=== PATIENT | female | born 1960 ===

== ENCOUNTER 2017-12-17 20:28 | Inpatient (IN) | payer MEDICAID ==
[2017-12-17] MEDS ORDERED: Albuterol-Ipratrop 3 mg / 0.5 (3 ml) UD IH STA ×2 (20:57→23:55)
--- NOTE | 2017-12-17 21:04 | ED PDOC ---
HPI: SOB/CHF/COPD Time Seen by Provider: 12/17/17 20:44 Chief Complaint (Nursing): Chest Pain Chief Complaint (Provider): shortness of breath History Per: Patient History/Exam Limitations: no limitations Onset/Duration Of Symptoms: Days (2) Current Symptoms Are (Timing): Still Present Associated Symptoms: Chest Pain, Leg/Calf Pain Additional Complaint(s): 57 y/o female brought in by EMS for evaluation of shortness of breath x 2 days. Associated left-sided chest pain, wheezing; of which little relief provided with albuterol inhaler. Patient also reports right leg pain/redness/swelling x 5 days. Denies fever, nausea/vomiting, abdominal pain, recent travel. Past Medical History Reviewed: Historical Data, Nursing Documentation, Vital Signs Vital Signs: Last Vital Signs Temp 99.9 F H 12/17/17 23:11 Pulse 105 H 12/17/17 20:33 Resp 18 12/17/17 20:33 BP 172/100 H 12/17/17 20:33 Pulse Ox 97 12/18/17 00:29 - Medical History PMH: Asthma, Depression, HTN - Surgical History Other surgeries: right ankle sx, left shoulder sx - Family History Family History: States: No Known Family Hx - Social History Current smoker - smoking cessation education provided: No Ex-Smoker (has not smoked in the last 12 months): Yes - Allergies Allergies/Adverse Reactions: Allergies Allergy/AdvReac Type Severity Reaction Status Date / Time No Known Allergies Allergy Verified 12/17/17 20:33 Review of Systems ROS Statement: Except As Marked, All Systems Reviewed And Found Negative Cardiovascular: Positive for: Chest Pain Respiratory: Positive for: Cough, Shortness of Breath Musculoskeletal: Positive for: Leg Pain Physical Exam - Reviewed Nursing Documentation Reviewed: Yes Vital Signs Reviewed: Yes - Physical Exam Appears: Positive for: Well, Non-toxic, Uncomfortable Head Exam: Positive for: ATRAUMATIC, NORMAL INSPECTION, NORMOCEPHALIC Skin: Positive for: Normal Color Eye Exam: Positive for: Normal appearance ENT: Positive for: Normal ENT Inspection Cardiovascular/Chest: Positive for: Regular Rate, Rhythm Respiratory: Positive for: Wheezing (audible wheezing) Gastrointestinal/Abdominal: Positive for: Normal Exam Back: Positive for: Normal Inspection Extremity: Positive for: Normal ROM, Calf Tenderness (right lower extremity edema, erythema, tenderness; no skin break, lesions noted. warm to touch) Neurologic/Psych: Positive for: Alert, Oriented - Laboratory Results Result Diagrams: 12/17/17 21:33 12/17/17 21:33 - ECG ECG: Positive for: Viewed By Me (reviewed by ED attending) ECG Rhythm: Positive for: Sinus Rhythm O2 Sat by Pulse Oximetry: 97 - Progress ED Course And Treament: labs, venous duplex RLE, CTA chest, duonebs, IV solumedrol, ekg EXAM: US Duplex Right Lower Extremity Veins EXAM DATE/TIME: 12/17/2017 8:57 PM CLINICAL HISTORY: 57 years old, female; Pain and signs and symptoms; Swelling of limb; Lower extremity, right; Leg, lower; Additional info: Pain/swelling right le TECHNIQUE: Real-time duplex ultrasound scan of the right lower extremity veins integrating B-mode twodimensional vascular structure, Doppler spectral analysis, color flow Doppler imaging and compression. COMPARISON: There are no prior studies for comparison. FINDINGS: Deep veins: Common femoral, superficial femoral, popliteal and posterior tibial veins were evaluated. All veins examined are compressible. There are no intraluminal filling defects. There is expected blood flow on Doppler imaging. There is change in waveform with augmentation. Soft tissues: There is a 3.3 x 1.3 x 2.5 cm right popliteal cyst. IMPRESSION: No deep venous thrombosis in the visualized vascular segments of the right lower extremity; popliteal cyst EXAM: CT Angiography Chest With Intravenous Contrast EXAM DATE/TIME: 12/17/2017 8:58 PM CLINICAL HISTORY: 57 years old, female; Pain and signs and symptoms; Shortness of breath; Chest pain; Left-sided chest pain; Additional info: Chest pain, SOB TECHNIQUE: Axial computed tomographic angiography images of the chest with intravenous contrast using pulmonary embolism protocol. All CT scans at this facility use at least one of these dose optimization techniques: automated exposure control; mA and/or kV adjustment per patient size (includes targeted exams where dose is matched to clinical indication); or iterative reconstruction. MIP reconstructed images were created and reviewed. Coronal and sagittal reformatted images were created and reviewed. COMPARISON: CT - VASCULAR^PE_LARGE (ADULT) 2011-04-13 20:52 FINDINGS: Heart, aorta and Pulmonary arteries: Heart size is normal. There is no pericardial effusion. Ascending aorta is mildly prominent, 4 cm in diameter. Main pulmonary artery is dilated, 4 cm in diameter. There are no central pulmonary emboli. Allowing for bolus timing, no peripheral emboli are identified. Lungs and pleural spaces: Trachea and main bronchi are patent. There is no pneumothorax. There are pleural plaques with focal areas of calcification in the right upper hemithorax. There is no focal consolidation. There is a calcified granuloma in the right middle lobe. There is a 3.5 mm noncalcified left lower lobe nodule. There is a 4.6 mm peripheral left lower lobe nodule. There is an adjacent 4 mm nodule. There is a 5.7 mm pleural-based left lower lobe nodule. There is subsegmental atelectasis/scarring in the left lower lobe. There are no effusions. Thyroid: Thyroid is only partially imaged. Bones/joints: There is streak artifact from clips in the left humeral head. There are old healed rib fractures bilaterally. There degenerative changes in the spine. Soft tissues: unremarkable Mediastinum: Esophagus is unremarkable. There is a small hiatal hernia. There are shotty mediastinal nodes. Small calcified right hilar nodes. Upper abdomen: There are no acute abnormalities in the visualized portion of the abdomen. There are multiple calcified granulomas in the liver and spleen. IMPRESSION: Prior granulomatous disease; multiple small noncalcified left lower lobe nodules difficult to further characterize; prominent ascending aorta, 4 cm in diameter, no dissection; dilated main pulmonary artery suggest pulmonary hypertension, no pulmonary emboli; subsegmental atelectasis/scarring at the left base On re-eval, patient still with diffuse wheezing; notes little improvement of breathing. Duoneb and Mag sulfate ordered. IV zosyn ordered Case discussed with Dr. Son, Medical Service on-call, for admission Disposition - Clinical Impression Clinical Impression: Asthma exacerbation, Cellulitis of right leg - Patient ED Disposition Is Patient to be Admitted: No - Disposition Disposition Time: 00:29 Condition: FAIR - POA Present On Arrival: None
[2017-12-17] MEDS ORDERED: Albuterol-Ipratrop 3 mg / 0.5 (3 ml) UD ONE (21:08)
[2017-12-17] MEDS ORDERED: Sodium Chloride 0.9% 50 ML IV ONE (21:30)
[2017-12-17] MEDS ORDERED: Iodixanol 320 MG/ML 100 ML BOTTLE IV ONE (21:30)
[2017-12-17 21:39] LABS: BASO % 0.8 % (0.0-2.0); EOS % 0.5 % (0.0-4.0); HEMOGLOBIN 16.4 g/dL (12.0-16.0); LYMPH # 1.1 K/uL (1.0-4.3); LYMPH % 19.3 % (20.0-40.0); MEAN CELL VOLUME 96.1 fl (81.0-99.0); MEAN CORPUSCULAR HEMOGLOBIN 32.1 pg (27.0-31.0); MEAN CORPUSCULAR HGB CONC 33.4 g/dL (33.0-37.0); MEAN PLATELET VOLUME 9.3 fl (7.2-11.7); MONO # 0.5 K/uL (0.0-0.8); MONO % 9.2 % (0.0-10.0); NEUT % 70.2 % (50.0-75.0); NRBC % 0.1 % (0.0-0.0); RBC 5.11 Mil/uL (3.80-5.20); RED CELL DISTRIBUTION WIDTH 13.7 % (11.5-14.5); WHITE BLOOD COUNT 5.8 K/uL (4.8-10.8)
[2017-12-17 21:48] LABS: ALB/GLOB RATIO 0.9 (1.0-2.1); ALBUMIN 4.3 g/dL (3.5-5.0); ALT/SGPT 60 U/L (9-52); AST/SGOT 70 U/L (14-36); BLOOD UREA NITROGEN 5 mg/dl (7-17); CALCIUM 9.4 mg/dL (8.4-10.2); GFR AFRICAN-AMERICAN > 60; GFR NON-AFRICAN AMERICAN > 60
[2017-12-17 21:49] LABS: PARTIAL THROMBOPLASTIN TIME 33.8 Seconds (25.6-37.1); PROTHROMBIN TIME 11.4 Seconds (9.8-13.1)
--- NOTE | 2017-12-17 22:58 | US ---
EXAM: US Duplex Right Lower Extremity Veins EXAM DATE/TIME: 12/17/2017 8:57 PM CLINICAL HISTORY: 57 years old, female; Pain and signs and symptoms; Swelling of limb; Lower extremity, right; Leg, lower; Additional info: Pain/swelling right le TECHNIQUE: Real-time duplex ultrasound scan of the right lower extremity veins integrating B-mode two-dimensional vascular structure, Doppler spectral analysis, color flow Doppler imaging and compression. COMPARISON: There are no prior studies for comparison. FINDINGS: Deep veins: Common femoral, superficial femoral, popliteal and posterior tibial veins were evaluated. All veins examined are compressible. There are no intraluminal filling defects. There is expected blood flow on Doppler imaging. There is change in waveform with augmentation. Soft tissues: There is a 3.3 x 1.3 x 2.5 cm right popliteal cyst. IMPRESSION: No deep venous thrombosis in the visualized vascular segments of the right lower extremity; popliteal cyst
--- NOTE | 2017-12-17 23:20 | CT ---
EXAM: CT Angiography Chest With Intravenous Contrast EXAM DATE/TIME: 12/17/2017 8:58 PM CLINICAL HISTORY: 57 years old, female; Pain and signs and symptoms; Shortness of breath; Chest pain; Left-sided chest pain; Additional info: Chest pain, SOB TECHNIQUE: Axial computed tomographic angiography images of the chest with intravenous contrast using pulmonary embolism protocol. All CT scans at this facility use at least one of these dose optimization techniques: automated exposure control; mA and/or kV adjustment per patient size (includes targeted exams where dose is matched to clinical indication); or iterative reconstruction. MIP reconstructed images were created and reviewed. Coronal and sagittal reformatted images were created and reviewed. COMPARISON: CT - VASCULAR^PE LARGE (ADULT) 2011-04-13 20:52 FINDINGS: Heart, aorta and Pulmonary arteries: Heart size is normal. There is no pericardial effusion. Ascending aorta is mildly prominent, 4 cm in diameter. Main pulmonary artery is dilated, 4 cm in diameter. There are no central pulmonary emboli. Allowing for bolus timing, no peripheral emboli are identified. Lungs and pleural spaces: Trachea and main bronchi are patent. There is no pneumothorax. There are pleural plaques with focal areas of calcification in the right upper hemithorax. There is no focal consolidation. There is a calcified granuloma in the right middle lobe. There is a 3.5 mm noncalcified left lower lobe nodule. There is a 4.6 mm peripheral left lower lobe nodule. There is an adjacent 4 mm nodule. There is a 5.7 mm pleural-based left lower lobe nodule. There is subsegmental atelectasis/scarring in the left lower lobe. There are no effusions. Thyroid: Thyroid is only partially imaged. Bones/joints: There is streak artifact from clips in the left humeral head. There are old healed rib fractures bilaterally. There degenerative changes in the spine. Soft tissues: unremarkable Mediastinum: Esophagus is unremarkable. There is a small hiatal hernia. There are shotty mediastinal nodes. Small calcified right hilar nodes. Upper abdomen: There are no acute abnormalities in the visualized portion of the abdomen. There are multiple calcified granulomas in the liver and spleen. IMPRESSION: Prior granulomatous disease; multiple small noncalcified left lower lobe nodules difficult to further characterize; prominent ascending aorta, 4 cm in diameter, no dissection; dilated main pulmonary artery suggest pulmonary hypertension, no pulmonary emboli; subsegmental atelectasis/scarring at the left base For low-risk patients, no follow-up is necessary. For high-risk patients (smoking history or other known risk factors) an optional chest CT at 12 months could be performed.
[2017-12-17] MEDS ORDERED: Magnesium Sulfate 2 gm/50 ml 2 GM/50 ML BAG IVPB STA (23:58)
[2017-12-18] MEDS ORDERED: Albuterol-Ipratrop 3 mg / 0.5 (3 ml) UD ONE (00:01)
[2017-12-18] MEDS ORDERED: Magnesium Sulfate 2 gm/50 ml 2 GM/50 ML BAG ONE (00:02)
[2017-12-18] MEDS ORDERED: Piperacillin/Tazobact 3.375 GM in Sodium Chloride 0.9% 100 ML IV ONE (00:21)
[2017-12-18] MEDS ORDERED: Piperacillin/Tazobact 3.375 gm Inj IVPB ONE (00:41)
[2017-12-18] MEDS ORDERED: Albuterol-Ipratrop 3 mg / 0.5 (3 ml) UD INH PRN ×2 (06:28→06:30)
[2017-12-18] MEDS ORDERED: Pneumococcal 23-Valent Vaccine IM ONE (06:30)
[2017-12-18] MEDS: Albuterol-Ipratrop 3 mg / 0.5 (3 ml) UD INH SCH ×3 (08:03→20:04)
[2017-12-18] MEDS: Promethazine/Cod 6.25mg-10mg/5ml Syr UD PO PRN ×2 (08:49→15:39)
[2017-12-18] MEDS ORDERED: Piperacillin/Tazobact 3.375 GM in Sodium Chloride 0.9% 100 ML IVPB SCH (09:00)
[2017-12-18] MEDS: MethylPREDNISolone 40 mg Vial IVP SCH ×3 (09:00→21:20)
[2017-12-18] MEDS: Piperacillin/Tazobact 3.375 GM in Sodium Chloride 0.9% 100 ML IVPB SCH ×3 (09:01→21:23)
[2017-12-18] MEDS ORDERED: Sodium Chloride 3% for Inhalation 4 ML VIAL.NEB IH PRN (09:32)
[2017-12-18 11:45] LABS: ABG ALLEN TEST YES; ARTERIAL BLOOD GAS HCO3 31.6 mmol/L (21-28); ARTERIAL BLOOD GAS HEMOGLOBIN 16.2 g/dL (11.7-17.4); ARTERIAL BLOOD GAS O2 CONTENT 21.6 ML/dL (15-23); ARTERIAL BLOOD GAS O2 SAT 98.3 % (95-98); ARTERIAL BLOOD GAS PCO2 64 mm/Hg (35-45); ARTERIAL BLOOD GAS PH 7.37 (7.35-7.45); ARTERIAL BLOOD GAS PO2 89 mm/Hg (80-100)
--- NOTE | 2017-12-18 13:31 | CP.PCM.HP ---
History of Present Illness - History of Present Illness History of Present Illness: CC: SOB. 57 y/o F, Hx of Asthma, HTN, bought to [facility], via EMS to be evaluated for moderate SOB that began 2 days [facility] associated to wheezing, non productive cough, TMAx 100.9, Pt using Albuterol inhalers with some relief. Worsening symptoms: C/O of Chest pain L sided, intermittent, moderate intensity 6:10, radiated to left body side from 2 days [facility], also c/o of RLE pain associated to swelling/redness from 5 days [facility]. Aggravated factor: Moving/exercise. Pt denied: Fever, chills, n/v/d, abdominal pain, urinary symptoms, dizziness, LOC, numbness, sick contact, recent travel out of [facility]. Ext U=S: No DVT. Chest CT: Multiple non calcified nodules LLL, prominent ascending aorta, pulmonary HTN. Present on Admission - Present on Admission Any Indicators Present on Admission: No Review of Systems - Constitutional Constitutional: Fever - EENT Eyes: Other (negative) Ears: Other (negative) Nose/Mouth/Throat: Other (negative) - Cardiovascular Cardiovascular: Chest Pain, Leg Edema - Respiratory Respiratory: Cough, Dyspnea, Wheezing - Gastrointestinal Gastrointestinal: Other (negative) - Genitourinary Genitourinary: Other (negative) - Musculoskeletal Musculoskeletal: Other (RLE pain) - Integumentary Integumentary: Swelling (RLE), Other (redness RLE) - Neurological Neurological: Other (negative) - Psychiatric Psychiatric: Anxiety - Endocrine Endocrine: Other (negative) - Hematologic/Lymphatic Hematologic: Other (negative) Past Patient History - Past Medical History & Family History Past Medical History?: Yes Pertinent Family History: Unknown - Past Social History Smoking Status: Former Smoker Alcohol: None Drugs: Denies Home Situation {Lives}: With Family - CARDIAC Hx Cardiac Disorders: Yes Hx Hypertension: Yes - PULMONARY Hx Respiratory Disorders: Yes Hx Asthma: Yes - NEUROLOGICAL Hx Neurological Disorder: No - HEENT Hx HEENT Problems: No - RENAL Hx Chronic Kidney Disease: No - ENDOCRINE/METABOLIC Hx Endocrine Disorders: No - HEMATOLOGICAL/ONCOLOGICAL Hx Blood Disorders: No - INTEGUMENTARY Hx Dermatological Problems: No - MUSCULOSKELETAL/RHEUMATOLOGICAL Hx Musculoskeletal Disorders: No Hx Falls: No - GASTROINTESTINAL Hx Gastrointestinal Disorders: No - GENITOURINARY/GYNECOLOGICAL Hx Genitourinary Disorders: No - PSYCHIATRIC Hx Psychophysiologic Disorder: Yes Hx Anxiety: Yes Hx Depression: Yes Hx Substance Use: No - SURGICAL HISTORY Hx Surgeries: Yes Other/Comment: Left shoulder sx. Right ankle sx. - ANESTHESIA Hx Anesthesia: Yes Hx Anesthesia Reactions: No Hx Malignant Hyperthermia: No Has any member of the family had a problem w/ anesthesia?: No Meds Allergies/Adverse Reactions: Allergies Allergy/AdvReac Type Severity Reaction Status Date / Time No Known Allergies Allergy Verified 12/17/17 20:33 Physical Exam - Constitutional Appears: No Acute Distress - Head Exam Head Exam: NORMAL INSPECTION - Eye Exam Eye Exam: PERRL - ENT Exam ENT Exam: Normal Exam - Neck Exam Neck exam: Positive for: Normal Inspection - Respiratory Exam Respiratory Exam: Wheezes - Cardiovascular Exam Cardiovascular Exam: REGULAR RHYTHM - GI/Abdominal Exam GI & Abdominal Exam: Normal Bowel Sounds, Soft - Extremities Exam Additional comments: RLE edema, erythema , calf tenderness, warm to touch. - Back Exam Back exam: NORMAL INSPECTION - Neurological Exam Neurological exam: Alert, Oriented x3 Additional comments: No motor/sensory deficit. - Psychiatric Exam Psychiatric exam: Anxious - Skin Skin Exam: Warm Results - Vital Signs Recent Vital Signs: Last Vital Signs Temp 98.6 F 12/18/17 12:00 Pulse 81 12/18/17 12:00 Resp 20 12/18/17 12:00 BP 136/60 12/18/17 12:00 Pulse Ox 93 L 12/18/17 12:00 reviewed Momo - Labs Result Diagrams: 12/19/17 05:11 12/19/17 08:08 Labs: Laboratory Results - last 24 hr 12/17/17 12/17/17 12/17/17 21:33 21:33 21:33 WBC 5.8 RBC 5.11 Hgb 16.4 H Hct 49.1 H MCV 96.1 MCH 32.1 H MCHC 33.4 RDW 13.7 Plt Count 97 L MPV 9.3 Neut % (Auto) 70.2 Lymph % (Auto) 19.3 L Pitt % (Auto) 9.2 Eos % (Auto) 0.5 Baso % (Auto) 0.8 Neut # (Auto) 4.0 Lymph # (Auto) 1.1 Pitt # (Auto) 0.5 Eos # (Auto) 0.0 Baso # (Auto) 0.0 PT 11.4 INR 1.0 APTT 33.8 pCO2 pO2 HCO3 ABG pH ABG Total CO2 ABG O2 Saturation ABG O2 Content ABG Base Excess ABG Hemoglobin ABG Carboxyhemoglobin POC ABG HHb (Measured) ABG Methemoglobin ABG O2 Capacity Willie Test A-a O2 Difference Hgb O2 Saturation FiO2 Sodium 131 L Potassium 4.1 Chloride 90 L Carbon Dioxide 26 Anion Gap 19 BUN 5 L Creatinine 0.6 L Est GFR ( Amer) > 60 Est GFR (Non-Af Amer) > 60 Random Glucose 127 H Lactic Acid Calcium 9.4 Total Bilirubin 0.9 AST 70 H ALT 60 H Alkaline Phosphatase 172 H Troponin I 0.0600 Total Protein 9.2 H Albumin 4.3 Globulin 4.9 H Albumin/Globulin Ratio 0.9 L 12/17/17 12/18/17 12/18/17 21:35 04:50 08:52 WBC RBC Hgb Hct MCV MCH MCHC RDW Plt Count MPV Neut % (Auto) Lymph % (Auto) Pitt % (Auto) Eos % (Auto) Baso % (Auto) Neut # (Auto) Lymph # (Auto) Pitt # (Auto) Eos # (Auto) Baso # (Auto) PT INR APTT pCO2 pO2 HCO3 ABG pH ABG Total CO2 ABG O2 Saturation ABG O2 Content ABG Base Excess ABG Hemoglobin ABG Carboxyhemoglobin POC ABG HHb (Measured) ABG Methemoglobin ABG O2 Capacity Willie Test A-a O2 Difference Hgb O2 Saturation FiO2 Sodium Potassium Chloride Carbon Dioxide Anion Gap BUN Creatinine Est GFR ( Amer) Est GFR (Non-Af Amer) Random Glucose Lactic Acid 2.2 H 1.4 Calcium Total Bilirubin AST ALT Alkaline Phosphatase Troponin I 0.0400 Total Protein Albumin Globulin Albumin/Globulin Ratio 12/18/17 11:40 WBC RBC Hgb Hct MCV MCH MCHC RDW Plt Count MPV Neut % (Auto) Lymph % (Auto) Pitt % (Auto) Eos % (Auto) Baso % (Auto) Neut # (Auto) Lymph # (Auto) Pitt # (Auto) Eos # (Auto) Baso # (Auto) PT INR APTT pCO2 64 H pO2 89 HCO3 31.6 H ABG pH 7.37 ABG Total CO2 39.0 H ABG O2 Saturation 98.3 H ABG O2 Content 21.6 ABG Base Excess 8.7 H ABG Hemoglobin 16.2 ABG Carboxyhemoglobin 2.0 H POC ABG HHb (Measured) 1.6 ABG Methemoglobin 1.7 ABG O2 Capacity 22.0 Willie Test Yes A-a O2 Difference 59.0 Hgb O2 Saturation 94.7 L FiO2 32.0 Sodium Potassium Chloride Carbon Dioxide Anion Gap BUN Creatinine Est GFR ( Amer) Est GFR (Non-Af Amer) Random Glucose Lactic Acid Calcium Total Bilirubin AST ALT Alkaline Phosphatase Troponin I Total Protein Albumin Globulin Albumin/Globulin Ratio reviewed J.P. - Imaging and Cardiology Venous US Status: Report reviewed by me (Momo) CT scan - chest Status: Report reviewed by me (Momo) Assessment & Plan (1) Asthma exacerbation Status: Acute Priority: High (2) Cellulitis of right leg Status: Acute Priority: High (3) Left sided chest pain Status: Acute Priority: High - Assessment and Plan (Free Text) Plan: F/U Sputum C-S, Blood C-S, Continue Zosyn, Solu-Medrol, Duoneb, Phenergan with Co, Lovenox and rest of Tx. EKG, Echo, Cardiology consult. - Date & Time Date: 12/18/17 Time: 14:00
[2017-12-18] MEDS: Pantoprazole 40 mg EC Tab PO SCH (14:01)
[2017-12-18] MEDS: Enoxaparin 40 mg Syringe SC SCH (16:24)
--- NOTE | 2017-12-18 20:56 | CARD ---
APPROVED REPORT EKG Measurement Heart [id number] <Conclusion> Normal sinus rhythm Possible Left atrial enlargement Borderline ECG
[2017-12-19] MEDS: Albuterol-Ipratrop 3 mg / 0.5 (3 ml) UD INH SCH ×4 (01:20→19:15)
[2017-12-19] MEDS: MethylPREDNISolone 40 mg Vial IVP SCH ×4 (03:40→21:13)
[2017-12-19] MEDS: Piperacillin/Tazobact 3.375 GM in Sodium Chloride 0.9% 100 ML IVPB SCH ×4 (03:42→21:14)
[2017-12-19 05:48] LABS: LDL CHOLESTEROL 80 mg/dL (0-129)
[2017-12-19 06:32] LABS: ALB/GLOB RATIO 0.9 (1.0-2.1); ALBUMIN 4.1 g/dL (3.5-5.0); ALT/SGPT 15 U/L (9-52); AST/SGOT 71 U/L (14-36); BLOOD UREA NITROGEN 16 mg/dl (7-17); CALCIUM 9.5 mg/dL (8.4-10.2); GFR AFRICAN-AMERICAN > 60; GFR NON-AFRICAN AMERICAN > 60; HDL CHOLESTEROL 39 MG/DL (30-70)
[2017-12-19 08:15] LABS: HEMOGLOBIN 15.8 g/dL (12.0-16.0); MEAN CELL VOLUME 97.5 fl (81.0-99.0); MEAN CORPUSCULAR HEMOGLOBIN 31.8 pg (27.0-31.0); MEAN CORPUSCULAR HGB CONC 32.6 g/dL (33.0-37.0); RBC 4.96 Mil/uL (3.80-5.20); RED CELL DISTRIBUTION WIDTH 13.8 % (11.5-14.5); WHITE BLOOD COUNT 6.8 K/uL (4.8-10.8)
[2017-12-19] MEDS: Lidocaine 5% Patch TD SCH (09:00)
[2017-12-19] MEDS: Enoxaparin 40 mg Syringe SC SCH (09:29)
[2017-12-19] MEDS: Pantoprazole 40 mg EC Tab PO SCH (09:29)
[2017-12-19] MEDS: Promethazine/Cod 6.25mg-10mg/5ml Syr UD PO SCH ×3 (11:45→21:12)
--- NOTE | 2017-12-19 13:35 | CP.PCM.PN ---
Subjective - Date & Time of Evaluation Date of Evaluation: 12/19/17 Time of Evaluation: 15:30 - Subjective Subjective: cough with scanty yellowish sputum, no SOB with O2 NC , Objective - Vital Signs/Intake and Output Vital Signs (last 24 hours): Temp Pulse Resp BP Pulse Ox 98 F 77 18 137/83 95 12/19/17 12:18 12/19/17 12:18 12/19/17 12:18 12/19/17 12:18 12/19/17 12:18 - Medications Medications: Current Medications Albuterol/Ipratropium (Duoneb 3 Mg/0.5 Mg (3 Ml) Ud) 3 ml INH RQ6 PRN PRN Reason: Shortness of Breath Last Admin: 12/19/17 11:43 Dose: 3 ml Albuterol/Ipratropium (Duoneb 3 Mg/0.5 Mg (3 Ml) Ud) 3 ml INH RQ6 AALIYAH Last Admin: 12/19/17 13:13 Dose: 3 ml Enoxaparin Sodium (Lovenox) 40 mg SC DAILY AALIYAH PRN Reason: Protocol Last Admin: 12/19/17 09:29 Dose: 40 mg Piperacillin Sod/Tazobactam (Sod 3.375 gm/ Sodium Chloride) 100 mls @ 100 mls/ hr IVPB Q6 AALIYAH PRN Reason: Protocol Last Admin: 12/19/17 09:30 Dose: 100 mls/hr Lidocaine (Lidoderm) 1 ea TD DAILY AALIYAH Lorazepam (Ativan) 1 mg PO HS AALIYAH Last Admin: 12/18/17 21:23 Dose: 1 mg Methylprednisolone (Solu-Medrol) 30 mg IVP Q6 AALIYAH Last Admin: 12/19/17 09:29 Dose: 30 mg Pantoprazole Sodium (Protonix Ec Tab) 40 mg PO DAILY AALIYAH Last Admin: 12/19/17 09:29 Dose: 40 mg Promethazine HCl/Codeine (Phenergan/Codeine Oral Syrup) 10 ml PO Q6 AALIYAH - Labs Labs: 12/19/17 05:11 12/19/17 08:08 PT 11.4 Seconds (9.8-13.1) 12/17/17 21:33 INR 1.0 (0.9-1.2) 12/17/17 21:33 APTT 33.8 Seconds (25.6-37.1) 12/17/17 21:33 - Constitutional Appears: No Acute Distress - Head Exam Head Exam: NORMAL INSPECTION - Eye Exam Eye Exam: PERRL - ENT Exam ENT Exam: Normal Exam - Neck Exam Neck Exam: Normal Inspection - Respiratory Exam Respiratory Exam: Rhonchi - Cardiovascular Exam Cardiovascular Exam: REGULAR RHYTHM - GI/Abdominal Exam GI & Abdominal Exam: Soft, Normal Bowel Sounds - Extremities Exam Additional comments: R leg edema, minimal erythema, minimal calf tenderness - Back Exam Back Exam: NORMAL INSPECTION - Neurological Exam Neurological Exam: Alert, CN II-XII Intact, Oriented x3. absent: Motor Sensory Deficit - Psychiatric Exam Psychiatric exam: Anxious - Skin Skin Exam: Warm Assessment and Plan (1) Asthma exacerbation Status: Acute (2) Cellulitis of right leg Status: Acute (3) Left sided chest pain Status: Acute - Assessment and Plan (Free Text) Plan: continue DuoNeb, SoluMedrol, Mucinex, Phenergan with Codeine ,O2 NC
[2017-12-19 15:31] LABS: BARBITURATES, UR NEGATIVE (NEGATIVE); BENZODIAZEPINES, UR NEGATIVE (NEGATIVE); OPIATES, UR POSITIVE (NEGATIVE); PHENCYCLIDINE, UR NEGATIVE (NEGATIVE)
--- NOTE | 2017-12-19 22:36 | CON ---
DATE: 12/19/2017 CARDIOLOGY CONSULTATION REASON FOR CONSULTATION: Exacerbation of bronchial asthma as well as chest tightness. HISTORY OF PRESENT ILLNESS: The patient is a 57-year-old female who is a former smoker, has a history of bronchial asthma, presented because of wheezing and chest tightness. The patient is unaware of any history of a heart attack; however, the patient had a surgery to her left shoulder a few years ago after she fell while she was sleeping, but she is not aware of any implanted device. She does have a scar related to the surgery, but she does not at this time. The patient denies any history of heart attack in the past. SOCIAL HISTORY: The patient is a former smoker. REVIEW OF SYSTEMS: The patient does report left foot infection recently, and for that reason, she is using a walking cane. CURRENT MEDICATIONS: Ativan 1 mg at bedtime p.r.n., Lovenox 40 mg subcutaneously daily, Phenergan with codeine 10 mL every 6 hours, Zosyn 3.375 gm intravenously every 6 hours, Solu-Medrol intravenously every 6 hours. PHYSICAL EXAMINATION: GENERAL: The patient is a middle-aged female who does not appear to be in acute distress at this time. VITAL SIGNS: Blood pressure 129/85, heart rate is 73, temperature 98.4, respirations 18. HEENT: Normocephalic. CHEST: Diffuse bilateral expiratory wheezing. HEART: S1 and S2 regular and distant. ABDOMEN: Soft. EXTREMITIES: Dressings applied to the left foot and trace leg edema. LABORATORY DATA: Today's hemoglobin and hematocrit 16.8 and 48.4, white count 6.8, platelet count 94,000. Today's PT, PTT, and INR are within normal limits. SMA-7 today: Sodium 136, potassium 4.7, chloride 98, CO2 of 30, glucose 161, BUN 16, creatinine 0.7. TSH level is within normal limits. Lipid profile is within normal limits. Chest CT angio with PE protocol revealed prior granulomatous disease, multiple small noncalcified left lower lobe nodules , difficult to further characterize. Prominent ascending aorta, 4 cm in diameter. No dissection. Dilated pulmonary artery, suggests pulmonary hypertension. No pulmonary emboli. Subsegmental atelectasis/scarring at the left base. EKG reveals sinus rhythm with possible left atrial enlargement, heart rate 98 beats per minute. Three sets of troponins are not elevated. ASSESSMENT: 1. Exacerbation of bronchial asthma. 2. Atypical chest pain, myocardial infarction ruled out. 3. Left foot cellulitis. 4. History of left shoulder fracture a few years ago. RECOMMENDATIONS: Continue current IV Zosyn and Solu-Medrol. Continue current bronchodilators. Obtain an echocardiogram and chest x-ray, PA and lateral. Aubrey Ryan MD
[2017-12-20] MEDS: Albuterol-Ipratrop 3 mg / 0.5 (3 ml) UD INH SCH ×4 (01:03→19:08)
[2017-12-20] MEDS: Promethazine/Cod 6.25mg-10mg/5ml Syr UD PO SCH ×4 (04:00→21:48)
[2017-12-20] MEDS: Piperacillin/Tazobact 3.375 GM in Sodium Chloride 0.9% 100 ML IVPB SCH ×4 (04:32→21:47)
[2017-12-20] MEDS: MethylPREDNISolone 40 mg Vial IVP SCH ×4 (05:31→21:49)
--- NOTE | 2017-12-20 08:44 | RAD ---
HISTORY: cp COMPARISON: No prior. TECHNIQUE: Chest PA and lateral FINDINGS: LUNGS: No active pulmonary disease. PLEURA: No significant pleural effusion identified. No pneumothorax apparent. CARDIOVASCULAR: Normal. OSSEOUS STRUCTURES: No significant abnormalities. VISUALIZED UPPER ABDOMEN: Normal. OTHER FINDINGS: None. IMPRESSION: No active disease.
[2017-12-20] MEDS: Lidocaine 5% Patch TD SCH (08:57)
[2017-12-20] MEDS: Enoxaparin 40 mg Syringe SC SCH (08:57)
[2017-12-20] MEDS: Pantoprazole 40 mg EC Tab PO SCH (08:58)
--- NOTE | 2017-12-20 14:43 | CARD ---
APPROVED REPORT EXAM: Two-dimensional and M-mode echocardiogram with Doppler and color Doppler. Other Information Quality : GoodRhythm : INDICATION Chest Pain 2D DIMENSIONS IVSd1.05 (0.7-1.1cm)LVDd4.64 (3.9-5.9cm) LVOT Diameter1.63 (1.8-2.4cm)PWd1.07 (0.7-1.1cm) IVSs1.28 (0.8-1.2cm)LVDs3.18 (2.5-4.0cm) FS (%) 31.5 %PWs1.26 (0.8-1.2cm) M-Mode DIMENSIONS Left Atrium (MM)4.09 (2.5-4.0cm)IVSd1.28 (0.7-1.1cm) Aortic Root3.32 (2.2-3.7cm)LVDd4.80 (4.0-5.6cm) Aortic Cusp Exc.1.74 (1.5-2.0cm)PWd1.21 (0.7-1.1cm) IVSs1.24 cmFS (%) 29 % LVDs3.41 (2.0-3.8cm)PWs1.39 cm Mitral Valve MV E Zavrvsmb80.1cm/sMV DECEL [id number] A Fvxfuhsa26.8cm/s MV AFW01sbL/A ratio1.1MVA (PHT)3.59cm2 TDI Lateral E' Peak V10.35cm/sMedial E' Peak V8.47cm/sE/Lateral E'7.3 E/Medial E'8.9 Pulmonary Valve PV Peak Crueepdm696.6cm/s Tricuspid Valve TR Peak Pwumiwte032ru/sRAP ICNYALRH28oqYkAS Peak Gr.41mmHg [id number] LEFT VENTRICLE The left ventricle is normal size. There is normal left ventricular wall thickness. The left ventricular function is normal. The left ventricular ejection fraction is within the normal range. The Ejection Fraction is 55-60%. There is normal LV segmental wall motion. The left ventricular diastolic function is normal. RIGHT VENTRICLE The right ventricle is normal size. The right ventricular systolic function is normal. ATRIA The left atrium size is normal. The right atrium size is normal. AORTIC VALVE The aortic valve is normal in structure. No aortic regurgitation is present. There is no aortic valvular stenosis. MITRAL VALVE The mitral valve is normal in structure. There is no mitral valve stenosis. There is no mitral valve regurgitation noted. TRICUSPID VALVE The tricuspid valve is normal in structure. There is no tricuspid valve regurgitation noted. PULMONIC VALVE The pulmonary valve is normal in structure. There is no pulmonic valvular regurgitation. GREAT VESSELS The aortic root is normal in size. The IVC is normal in size and collapses >50% with inspiration. PERICARDIAL EFFUSION The pericardium appears normal. <Conclusion> The left ventricle is normal size. The left ventricular function is normal. The left ventricular ejection fraction is within the normal range. The Ejection Fraction is 55-60%.
--- NOTE | 2017-12-20 17:35 | CP.PCM.PN ---
Subjective - Date & Time of Evaluation Date of Evaluation: 12/20/17 Time of Evaluation: 13:00 - Subjective Subjective: F/U Asthma Exacerbation Continue with cough, no SOB. Objective - Vital Signs/Intake and Output Vital Signs (last 24 hours): Temp Pulse Resp BP Pulse Ox 98.4 F 83 18 149/83 95 12/20/17 17:17 12/20/17 17:17 12/20/17 17:17 12/20/17 17:17 12/20/17 17:17 - Medications Medications: Current Medications Albuterol/Ipratropium (Duoneb 3 Mg/0.5 Mg (3 Ml) Ud) 3 ml INH RQ6 PRN PRN Reason: Shortness of Breath Last Admin: 12/19/17 11:43 Dose: 3 ml Albuterol/Ipratropium (Duoneb 3 Mg/0.5 Mg (3 Ml) Ud) 3 ml INH RQ6 AALIYAH Last Admin: 12/20/17 13:28 Dose: 3 ml Enoxaparin Sodium (Lovenox) 40 mg SC DAILY AALIYAH PRN Reason: Protocol Last Admin: 12/20/17 08:57 Dose: 40 mg Piperacillin Sod/Tazobactam (Sod 3.375 gm/ Sodium Chloride) 100 mls @ 100 mls/ hr IVPB Q6 AALIYAH PRN Reason: Protocol Last Admin: 12/20/17 16:56 Dose: 100 mls/hr Lidocaine (Lidoderm) 1 ea TD DAILY AALIYAH Last Admin: 12/20/17 08:57 Dose: 1 ea Lorazepam (Ativan) 1 mg PO HS AALIYAH Last Admin: 12/19/17 21:13 Dose: 1 mg Methylprednisolone (Solu-Medrol) 30 mg IVP Q6 AALIYAH Last Admin: 12/20/17 16:52 Dose: 30 mg Pantoprazole Sodium (Protonix Ec Tab) 40 mg PO DAILY AALIYAH Last Admin: 12/20/17 08:58 Dose: 40 mg Promethazine HCl/Codeine (Phenergan/Codeine Oral Syrup) 10 ml PO Q6 AALIYAH Last Admin: 12/20/17 16:56 Dose: 10 ml - Labs Labs: 12/19/17 05:11 12/19/17 08:08 PT 11.4 Seconds (9.8-13.1) 12/17/17 21:33 INR 1.0 (0.9-1.2) 12/17/17 21:33 APTT 33.8 Seconds (25.6-37.1) 12/17/17 21:33 - Constitutional Appears: No Acute Distress - Head Exam Head Exam: NORMAL INSPECTION - Eye Exam Eye Exam: PERRL - ENT Exam ENT Exam: Normal Exam - Neck Exam Neck Exam: Normal Inspection - Respiratory Exam Respiratory Exam: Decreased Breath Sounds, Rhonchi - Cardiovascular Exam Cardiovascular Exam: REGULAR RHYTHM - GI/Abdominal Exam GI & Abdominal Exam: Soft, Normal Bowel Sounds - Extremities Exam Additional comments: R leg edema, minimal erythema, minimal calf tenderness - Back Exam Back Exam: NORMAL INSPECTION - Neurological Exam Neurological Exam: Alert, CN II-XII Intact, Oriented x3. absent: Motor Sensory Deficit - Psychiatric Exam Psychiatric exam: Anxious - Skin Skin Exam: Warm Assessment and Plan (1) Asthma exacerbation Status: Acute (2) Cellulitis of right leg Status: Acute (3) Left sided chest pain Status: Acute - Assessment and Plan (Free Text) Plan: Continue Duoneb, Zosyn, Darlin-medrol and rest of Tx.
--- NOTE | 2017-12-20 19:17 | PN ---
DATE: 12/20/2017 SUBJECTIVE: The patient is still wheezing. She denies chest pain. PHYSICAL EXAMINATION: VITAL SIGNS: Blood pressure 121/72, heart rate 72, temperature 98.2, respirations 18. HEENT: Normocephalic. CHEST: Bilateral expiratory wheezing. HEART: S1 and S2 regular. EXTREMITIES: Improving right foot cellulitis. LABORATORY DATA: Urine drug screen is positive for opiates. ASSESSMENT: 1. Exacerbation of bronchial asthma. 2. Atypical chest pain, myocardial infarction is ruled out. 3. Right leg cellulitis. RECOMMENDATIONS: Continue current subcutaneous Lovenox, IV Zosyn 3.375 gm every 6 hours, Solu-Medrol mg every 6 hours, Lovenox 20 mg subcutaneously daily. Kushal Matthews DMD
[2017-12-21] MEDS: Albuterol-Ipratrop 3 mg / 0.5 (3 ml) UD INH SCH ×4 (01:01→19:04)
[2017-12-21] MEDS: Promethazine/Cod 6.25mg-10mg/5ml Syr UD PO SCH ×4 (04:23→21:21)
[2017-12-21] MEDS: MethylPREDNISolone 40 mg Vial IVP SCH ×4 (04:24→21:22)
[2017-12-21] MEDS: Piperacillin/Tazobact 3.375 GM in Sodium Chloride 0.9% 100 ML IVPB SCH ×2 (04:24→09:11)
[2017-12-21] MEDS: Enoxaparin 40 mg Syringe SC SCH (09:12)
[2017-12-21] MEDS: Pantoprazole 40 mg EC Tab PO SCH (09:12)
[2017-12-21] MEDS: Lidocaine 5% Patch TD SCH (09:13)
--- NOTE | 2017-12-21 15:39 | CP.PCM.PN ---
Subjective - Date & Time of Evaluation Date of Evaluation: 12/21/17 Time of Evaluation: 13:50 - Subjective Subjective: no SOB , no MARKHAM, occasional cough Objective - Vital Signs/Intake and Output Vital Signs (last 24 hours): Temp Pulse Resp BP Pulse Ox 97.4 F L 79 18 150/84 98 12/21/17 12:04 12/21/17 12:04 12/21/17 12:04 12/21/17 12:04 12/21/17 12:04 - Medications Medications: Current Medications Albuterol/Ipratropium (Duoneb 3 Mg/0.5 Mg (3 Ml) Ud) 3 ml INH RQ6 PRN PRN Reason: Shortness of Breath Last Admin: 12/19/17 11:43 Dose: 3 ml Albuterol/Ipratropium (Duoneb 3 Mg/0.5 Mg (3 Ml) Ud) 3 ml INH RQ6 AALIYAH Last Admin: 12/21/17 13:23 Dose: 3 ml Lidocaine (Lidoderm) 1 ea TD DAILY AALIYAH Last Admin: 12/21/17 09:13 Dose: 1 ea Lorazepam (Ativan) 1 mg PO HS AALIYAH Last Admin: 12/20/17 21:47 Dose: 1 mg Methylprednisolone (Solu-Medrol) 30 mg IVP Q6 AALIYAH Last Admin: 12/21/17 09:11 Dose: 30 mg Pantoprazole Sodium (Protonix Ec Tab) 40 mg PO DAILY AALIYAH Last Admin: 12/21/17 09:12 Dose: 40 mg Promethazine HCl/Codeine (Phenergan/Codeine Oral Syrup) 10 ml PO Q6 AALIYAH Last Admin: 12/21/17 09:21 Dose: 10 ml - Labs Labs: 12/19/17 05:11 12/19/17 08:08 PT 11.4 Seconds (9.8-13.1) 12/17/17 21:33 INR 1.0 (0.9-1.2) 12/17/17 21:33 APTT 33.8 Seconds (25.6-37.1) 12/17/17 21:33 - Constitutional Appears: No Acute Distress - Head Exam Head Exam: NORMAL INSPECTION - Eye Exam Eye Exam: PERRL - ENT Exam ENT Exam: Normal Exam - Neck Exam Neck Exam: Normal Inspection - Respiratory Exam Respiratory Exam: Decreased Breath Sounds, Rhonchi (few at bases) - GI/Abdominal Exam GI & Abdominal Exam: Soft, Normal Bowel Sounds - Extremities Exam Additional comments: R leg edema, minimal erythema, minimal calf tenderness - Back Exam Back Exam: NORMAL INSPECTION - Neurological Exam Neurological Exam: Alert, CN II-XII Intact, Oriented x3. absent: Motor Sensory Deficit - Psychiatric Exam Psychiatric exam: Anxious - Skin Skin Exam: Warm Assessment and Plan (1) Asthma exacerbation Status: Acute (2) Cellulitis of right leg Status: Acute (3) Left sided chest pain Status: Acute
--- NOTE | 2017-12-21 20:28 | PN ---
DATE: 12/21/2017 SUBJECTIVE: The patient is mildly wheezing. She denies any retrosternal chest pain. PHYSICAL EXAMINATION: VITAL SIGNS: Blood pressure 150/84, heart rate 79, temperature 97.4, respirations 18. HEENT: Normocephalic. CHEST: Minimal expiratory wheezing. HEART: S1 and S2 regular. ABDOMEN: Soft. EXTREMITIES: Improved right leg edema. ASSESSMENT: 1. Exacerbation of bronchial asthma. 2. Atypical chest pain, myocardial infarction is ruled out. 3. Improved right leg cellulitis. RECOMMENDATIONS: Continue Solu-Medrol 30 mg intravenous every 6 hours, Protonix 20 mg once a day, Ativan 1 mg p.o. at bedtime. I did notice that my yesterday note has not populated into the [employer] database, and if does not show up by this evening, I will need to create another one. Aubrey Ryan MD
[2017-12-22] MEDS: Albuterol-Ipratrop 3 mg / 0.5 (3 ml) UD INH SCH ×4 (02:33→19:02)
[2017-12-22] MEDS: Promethazine/Cod 6.25mg-10mg/5ml Syr UD PO SCH ×2 (03:13→09:44)
[2017-12-22] MEDS: MethylPREDNISolone 40 mg Vial IVP SCH ×4 (03:14→21:57)
[2017-12-22] MEDS: Lidocaine 5% Patch TD SCH (09:35)
[2017-12-22] MEDS: Pantoprazole 40 mg EC Tab PO SCH (09:39)
[2017-12-22] MEDS: Piperacillin/Tazobact 3.375 GM in Sodium Chloride 0.9% 100 ML IVPB SCH ×3 (11:31→21:55)
--- NOTE | 2017-12-22 14:20 | RAD ---
HISTORY: sob COMPARISON: Chest radiograph dated 12/20/2017. TECHNIQUE: Chest PA and lateral FINDINGS: LUNGS: No active pulmonary disease. Peripheral right lung calcified granuloma redemonstrated. PLEURA: Bibasilar pleural thickening. No significant pleural effusion identified. No pneumothorax apparent. CARDIOVASCULAR: Normal. OSSEOUS STRUCTURES: Old posterior right 4th and 5th rib fractures redemonstrated. Unchanged. VISUALIZED UPPER ABDOMEN: Normal. OTHER FINDINGS: None. IMPRESSION: No active disease.
--- NOTE | 2017-12-22 16:03 | CARD ---
APPROVED REPORT EKG Measurement Heart [id number] [place] [id number] <Conclusion> Normal sinus rhythm Normal ECG
--- NOTE | 2017-12-22 16:48 | CT ---
PROCEDURE: CT Chest without contrast HISTORY: shortness of breath pneumonia COMPARISON: CT angiography of the pulmonary arteries performed 12/17/2017. TECHNIQUE: Contiguous axial images were obtained through the chest without intravenous contrast enhancement. Sagittal and coronal reconstructions were performed. Radiation dose (DLP): 645.4 mGy-cm. This CT exam was performed using one or more of the following dose reduction techniques: Automated exposure control, adjustment of the mA and/or kV according to patient size, and/or use of iterative reconstruction technique. FINDINGS: LUNGS: Clear lungs. Scattered calcified granulomas. Peripheral left lower lobe 4 mm nodule (series 2, image 67). Peripheral left lower lobe adjacent 6 mm and 4 mm nodules (series 2, image 72). Left lower lobe subsegmental atelectasis/scarring. Visualized airway clear. MEDIASTINUM: Unremarkable thoracic aorta. No aneurysm. Normal sized heart. Dilated main pulmonary artery. No lymphadenopathy. PLEURA: No pleural fluid. No pneumothorax. BONES: Surgical clips in the left humerus. Old posterior right 4th and 5th rib fractures. No acute fracture. No destructive lesion. UPPER ABDOMEN: Scattered hepatic and splenic calcified granulomas. Hepatic cirrhosis. Splenomegaly. Small hiatal hernia. OTHER FINDINGS: None. IMPRESSION: No focal consolidation or pleural effusion. Stable 4-6 mm peripheral left lower lobe nodules. Additional stable findings as above.
--- NOTE | 2017-12-22 19:35 | PN ---
DATE: 12/22/2017 SUBJECTIVE: The patient is still short of breath. She denies any chest pain. PHYSICAL EXAMINATION: VITAL SIGNS: Blood pressure 124/73, heart rate 75, temperature 98.2, respirations 18. HEENT: Normocephalic. CHEST: Bilateral rhonchi. HEART: S1, S2 regular. EXTREMITIES: There is improved right leg cellulitis. LABORATORY DATA: Today's EKG revealed normal sinus rhythm at the rate of 75. Today's chest x-ray revealed right lower lobe infiltrate. ASSESSMENT: 1. Exacerbation of bronchial asthma. 2. Consider right lower lobe pneumonia. 3. Atypical chest pain, myocardial infarction is ruled out. 4. Improving right leg cellulitis. RECOMMENDATIONS: Continue current albuterol inhaler. Continue IV Zosyn at 3.75 gm every 6 hours. Continue Solu-Medrol at 300 mg hours. Aubrey Ryan MD
--- NOTE | 2017-12-22 20:09 | CP.PCM.PN ---
Subjective - Date & Time of Evaluation Date of Evaluation: 12/22/17 Time of Evaluation: 09:40 - Subjective Subjective: F/U Asthma Exacerbation. Pt c/o of SOB, MARKHAM and CP today, Objective - Vital Signs/Intake and Output Vital Signs (last 24 hours): Temp Pulse Resp BP Pulse Ox 98.2 F 75 18 124/73 98 12/22/17 12:06 12/22/17 12:06 12/22/17 12:06 12/22/17 12:06 12/22/17 12:06 - Medications Medications: Current Medications Albuterol/Ipratropium (Duoneb 3 Mg/0.5 Mg (3 Ml) Ud) 3 ml INH RQ6 PRN PRN Reason: Shortness of Breath Last Admin: 12/19/17 11:43 Dose: 3 ml Albuterol/Ipratropium (Duoneb 3 Mg/0.5 Mg (3 Ml) Ud) 3 ml INH RQ6 AALIYAH Last Admin: 12/22/17 19:02 Dose: 3 ml Piperacillin Sod/Tazobactam (Sod 3.375 gm/ Sodium Chloride) 100 mls @ 100 mls/ hr IVPB Q6 AALIYAH PRN Reason: Protocol Last Admin: 12/22/17 16:49 Dose: 100 mls/hr Lidocaine (Lidoderm) 1 ea TD DAILY AALIYAH Last Admin: 12/22/17 09:35 Dose: 1 ea Methylprednisolone (Solu-Medrol) 30 mg IVP Q6 AALIYAH Last Admin: 12/22/17 16:46 Dose: 30 mg Pantoprazole Sodium (Protonix Ec Tab) 40 mg PO DAILY AALIYAH Last Admin: 12/22/17 09:39 Dose: 40 mg - Labs Labs: 12/19/17 05:11 12/19/17 08:08 PT 11.4 Seconds (9.8-13.1) 12/17/17 21:33 INR 1.0 (0.9-1.2) 12/17/17 21:33 APTT 33.8 Seconds (25.6-37.1) 12/17/17 21:33 - Constitutional Appears: No Acute Distress - Head Exam Head Exam: NORMAL INSPECTION - Eye Exam Eye Exam: PERRL - ENT Exam ENT Exam: Normal Exam - Neck Exam Neck Exam: Normal Inspection - Respiratory Exam Respiratory Exam: Decreased Breath Sounds, Rhonchi - Cardiovascular Exam Cardiovascular Exam: REGULAR RHYTHM - GI/Abdominal Exam GI & Abdominal Exam: Soft, Normal Bowel Sounds - Extremities Exam Additional comments: R leg edema, minimal erythema, minimal calf tenderness - Back Exam Back Exam: NORMAL INSPECTION - Neurological Exam Neurological Exam: Alert, CN II-XII Intact, Oriented x3. absent: Motor Sensory Deficit - Psychiatric Exam Psychiatric exam: Anxious - Skin Skin Exam: Warm Assessment and Plan (1) Asthma exacerbation Status: Acute (2) Cellulitis of right leg Status: Acute (3) Left sided chest pain Status: Acute - Assessment and Plan (Free Text) Plan: Continue Zosyn, Duoneb, Solu-Medrol, f/u CXR, CT Chest. F/U Cardiology
[2017-12-23] MEDS: Albuterol-Ipratrop 3 mg / 0.5 (3 ml) UD INH SCH ×5 (01:05→19:11)
[2017-12-23] MEDS: MethylPREDNISolone 40 mg Vial IVP SCH ×3 (04:27→15:52)
[2017-12-23] MEDS: Piperacillin/Tazobact 3.375 GM in Sodium Chloride 0.9% 100 ML IVPB SCH ×3 (04:28→15:51)
[2017-12-23] MEDS: Lidocaine 5% Patch TD SCH (08:35)
[2017-12-23] MEDS: Pantoprazole 40 mg EC Tab PO SCH (08:37)
--- NOTE | 2017-12-23 11:58 | CP.PCM.PCO ---
Assessment & Plan - Assessment and Plan (Free Text) Assessment: 57 yr old F admitted with Asthma exacerbation and LE Cellulitis patient will require solumedrol taper 30 mg iv q 6 and Zosyn 3.375 gm q 6 IV for 1 more week cont. to monitor labs, PT
--- NOTE | 2017-12-23 14:19 | CP.PCM.PN ---
Subjective - Date & Time of Evaluation Date of Evaluation: 12/23/17 Time of Evaluation: 09:40 - Subjective Subjective: F/U Asthma Exacerbation. Pt c/o of MARKHAM, intermittent SOB at rest, no cough, less chest congestion. Objective - Vital Signs/Intake and Output Vital Signs (last 24 hours): Temp Pulse Resp BP Pulse Ox 98.4 F 81 18 136/68 95 12/23/17 12:03 12/23/17 12:03 12/23/17 12:03 12/23/17 12:03 12/23/17 12:03 - Medications Medications: Current Medications Albuterol/Ipratropium (Duoneb 3 Mg/0.5 Mg (3 Ml) Ud) 3 ml INH RQ6 PRN PRN Reason: Shortness of Breath Last Admin: 12/19/17 11:43 Dose: 3 ml Albuterol/Ipratropium (Duoneb 3 Mg/0.5 Mg (3 Ml) Ud) 3 ml INH RQ6 AALIYAH Last Admin: 12/23/17 13:52 Dose: Not Given Piperacillin Sod/Tazobactam (Sod 3.375 gm/ Sodium Chloride) 100 mls @ 100 mls/ hr IVPB Q6 AALIYAH PRN Reason: Protocol Last Admin: 12/23/17 09:40 Dose: 100 mls/hr Lidocaine (Lidoderm) 1 ea TD DAILY AALIYAH Last Admin: 12/23/17 08:35 Dose: 1 ea Methylprednisolone (Solu-Medrol) 30 mg IVP Q6 AALIYAH Last Admin: 12/23/17 09:41 Dose: 30 mg Pantoprazole Sodium (Protonix Ec Tab) 40 mg PO DAILY AALIYAH Last Admin: 12/23/17 08:37 Dose: 40 mg - Labs Labs: 12/19/17 05:11 12/19/17 08:08 PT 11.4 Seconds (9.8-13.1) 12/17/17 21:33 INR 1.0 (0.9-1.2) 12/17/17 21:33 APTT 33.8 Seconds (25.6-37.1) 12/17/17 21:33 - Constitutional Appears: No Acute Distress - Head Exam Head Exam: NORMAL INSPECTION - Eye Exam Eye Exam: PERRL - ENT Exam ENT Exam: Normal Exam - Neck Exam Neck Exam: Normal Inspection - Respiratory Exam Respiratory Exam: Decreased Breath Sounds, Rhonchi (few at bases) - Cardiovascular Exam Cardiovascular Exam: REGULAR RHYTHM - GI/Abdominal Exam GI & Abdominal Exam: Soft, Normal Bowel Sounds - Extremities Exam Additional comments: R leg edema, minimal erythema, minimal calf tenderness - Back Exam Back Exam: NORMAL INSPECTION - Neurological Exam Neurological Exam: Alert, CN II-XII Intact, Oriented x3. absent: Motor Sensory Deficit - Psychiatric Exam Psychiatric exam: Anxious - Skin Skin Exam: Warm Assessment and Plan (1) Asthma exacerbation Status: Acute (2) Cellulitis of right leg Status: Acute (3) Left sided chest pain Status: Acute - Assessment and Plan (Free Text) Plan: Continue Duoneb, Zosyn, Solu-Medrol and rest of Tx.
--- NOTE | 2017-12-23 17:27 | PN ---
DATE: 12/23/2017 SUBJECTIVE: The patient is still experiencing shortness of breath and wheezing. She denies retrosternal chest pain. PHYSICAL EXAMINATION: VITAL SIGNS: Blood pressure 136/68, heart rate 81, temperature 98.4, and respirations 18. HEENT: Normocephalic. CHEST: Bilateral expiratory wheezing. HEART: S1 and S2 regular. EXTREMITIES: Improved right leg cellulitis. LABORATORY DATA: Chest CT scan performed yesterday revealed no focal consolidation or pleural effusion, stable 4 to 6 mm peripheral left lower lobe nodules. ASSESSMENT: 1. Bronchospasm. 2. Atypical chest pain, myocardial infarction is ruled out. 3. Obesity. 4. Improved right leg cellulitis. RECOMMENDATIONS: Continue current albuterol inhaler, IV Zosyn and IV Solu-Medrol. Aubrey Ryan MD
[2017-12-23 20:05] VITALS: RESP 19; TEMP 98.1
[2017-12-23 20:46] VITALS: BP 153/83; PULSE 77; O2SAT 97
== END 2017-12-23 21:10 | DRG 96 ==
LOC: H.ER 20:28 → H.ERHOLD 12-18 00:51 → H.TEL 12-18 02:22
PROVIDERS: ADMIT Internal Medicine Pulmonary Disease; ATTEND Internal Medicine Pulmonary Disease
PROC: 3E0234Z Introduction of Serum, Toxoid and Vaccine into Muscle, Percutaneous Approach (ICD-10-PCS; principal; 2017-12-18)
DX: J45.901 Unspecified asthma with (acute) exacerbation (principal); L03.115 Cellulitis of right lower limb; I27.20 Pulmonary hypertension, unspecified; I10 Essential (primary) hypertension; R07.89 Other chest pain; E66.9 Obesity, unspecified; Z68.29 Body mass index [BMI] 29.0-29.9, adult; Z23 Encounter for immunization; Z87.891 Personal history of nicotine dependence

== ENCOUNTER 2017-12-23 22:00 | Inpatient (IN) | payer MEDICAID ==
[2017-12-23 22:04] VITALS: BMI 35.9
[2017-12-23] MEDS ORDERED: Albuterol-Ipratrop 3 mg / 0.5 (3 ml) UD INH PRN (23:53)
[2017-12-23] MEDS ORDERED: Sodium Chloride 3% for Inhalation 4 ML VIAL.NEB IH PRN (23:53)
[2017-12-24 02:21] VITALS: RESP 20
[2017-12-24] MEDS ORDERED: Piperacillin/Tazobact 3.375 gm Inj IVPB SCH (04:00)
[2017-12-24] MEDS: MethylPREDNISolone 40 mg Vial IVP SCH ×4 (04:29→21:20)
[2017-12-24] MEDS: Piperacillin/Tazobact 3.375 GM in Sodium Chloride 0.9% 100 ML IVPB SCH ×4 (04:33→21:21)
[2017-12-24] MEDS: Albuterol-Ipratrop 3 mg / 0.5 (3 ml) UD INH SCH ×5 (04:35→23:06)
[2017-12-24] MEDS: Lidocaine 5% Patch TD SCH (09:02)
[2017-12-24] MEDS: Pantoprazole 40 mg EC Tab PO SCH (12:24)
--- NOTE | 2017-12-24 14:51 | CP.PCM.PN ---
Objective - Vital Signs/Intake and Output Vital Signs (last 24 hours): Temp Pulse Resp BP Pulse Ox 98.1 F 76 20 142/80 98 12/24/17 07:53 12/24/17 07:53 12/24/17 07:53 12/24/17 07:53 12/24/17 07:53 Intake and Output: 12/24/17 12/24/17 06:59 18:59 Intake Total 100 Balance 100 - Medications Medications: Current Medications Albuterol/Ipratropium (Duoneb 3 Mg/0.5 Mg (3 Ml) Ud) 3 ml INH RQ6 PRN PRN Reason: Shortness of Breath Last Admin: 12/24/17 14:08 Dose: 3 ml Albuterol/Ipratropium (Duoneb 3 Mg/0.5 Mg (3 Ml) Ud) 3 ml INH RQ4 AALIYAH Piperacillin Sod/Tazobactam (Sod 3.375 gm/ Sodium Chloride) 100 mls @ 100 mls/ hr IVPB Q6 AALIYAH Last Admin: 12/24/17 12:22 Dose: 100 mls/hr Lidocaine (Lidoderm) 1 ea TD DAILY AALIYAH Last Admin: 12/24/17 09:02 Dose: 1 ea Lidocaine (Lidoderm) 1 ea TD DAILY AALIYAH Lorazepam (Ativan) 1 mg PO HS AALIYAH Last Admin: 12/24/17 00:29 Dose: 1 mg Methylprednisolone (Solu-Medrol) 30 mg IVP Q6 AALIYAH Last Admin: 12/24/17 09:03 Dose: 30 mg Pantoprazole Sodium (Protonix Ec Tab) 40 mg PO DAILY AALIYAH Last Admin: 12/24/17 12:24 Dose: 40 mg
--- NOTE | 2017-12-24 15:45 | CP.PCM.HP ---
History of Present Illness - History of Present Illness History of Present Illness: 57 y/o F, with previous admission to [facility] on 12/17/17 to 12/23/17 due to Asthma exacerbation, Cellulitis R leg, On 12/23/17, Pt improved and was transferred to TCU unit to complete Solu_Medrol IV and Zosyn IV for one more week, and to benefit from PT, OT. Present on Admission - Present on Admission Any Indicators Present on Admission: No Review of Systems - Constitutional Constitutional: Other (negative) - EENT Eyes: Requires Corrective Lenses Ears: Other (negative) Nose/Mouth/Throat: Other (negative) - Respiratory Respiratory: Dyspnea, Dyspnea on Exertion. absent: Cough - Gastrointestinal Gastrointestinal: Other (negative) - Genitourinary Genitourinary: Other (negative) - Musculoskeletal Musculoskeletal: Other (RLE pain, L shoulder pain.) - Integumentary Integumentary: Swelling (RLE) - Neurological Neurological: Other (negative) - Psychiatric Psychiatric: Anxiety - Endocrine Endocrine: Other (negative) - Hematologic/Lymphatic Hematologic: Other (negative) Past Patient History - Past Medical History & Family History Past Medical History?: Yes Pertinent Family History: Unknown - Past Social History Smoking Status: Light Smoker < 10 Cigarettes Daily Alcohol: None Drugs: Denies Home Situation {Lives}: With Family - CARDIAC Hx Cardiac Disorders: Yes Hx Hypertension: Yes - PULMONARY Hx Respiratory Disorders: Yes Hx Asthma: Yes - NEUROLOGICAL Hx Neurological Disorder: No - HEENT Hx HEENT Problems: No - RENAL Hx Chronic Kidney Disease: No - ENDOCRINE/METABOLIC Hx Endocrine Disorders: No - HEMATOLOGICAL/ONCOLOGICAL Hx Blood Disorders: No Hx Blood Transfusions: Yes Hx Blood Transfusion Reaction: No - INTEGUMENTARY Hx Dermatological Problems: Yes Hx Cellulitis: Yes (ble) - MUSCULOSKELETAL/RHEUMATOLOGICAL Hx Falls: No - GASTROINTESTINAL Hx Gastrointestinal Disorders: No - GENITOURINARY/GYNECOLOGICAL Hx Genitourinary Disorders: No - PSYCHIATRIC Hx Anxiety: Yes Hx Depression: Yes Hx Substance Use: No - SURGICAL HISTORY Hx Surgeries: Yes Hx Orthopedic Surgery: Yes Hx Tubal Ligation: Yes Other/Comment: Left shoulder sx. Right ankle sx. - ANESTHESIA Hx Anesthesia: Yes Hx Anesthesia Reactions: No Hx Malignant Hyperthermia: No Meds Allergies/Adverse Reactions: Allergies Allergy/AdvReac Type Severity Reaction Status Date / Time No Known Allergies Allergy Verified 12/17/17 20:33 Physical Exam - Constitutional Appears: No Acute Distress - Head Exam Head Exam: NORMAL INSPECTION - Eye Exam Eye Exam: PERRL - ENT Exam ENT Exam: Normal Exam - Neck Exam Neck exam: Positive for: Normal Inspection - Respiratory Exam Respiratory Exam: Decreased Breath Sounds, Rhonchi (few at bases) - Cardiovascular Exam Cardiovascular Exam: REGULAR RHYTHM - GI/Abdominal Exam GI & Abdominal Exam: Normal Bowel Sounds, Soft - Extremities Exam Additional comments: R LE edema, minimal erythema, minimal calf tenderness - Back Exam Back exam: NORMAL INSPECTION - Neurological Exam Neurological exam: Alert, Oriented x3 Additional comments: No motor/sensory deficit. - Psychiatric Exam Psychiatric exam: Anxious - Skin Skin Exam: Warm Results - Vital Signs Recent Vital Signs: Last Vital Signs Temp 98.1 F 12/24/17 07:53 Pulse 76 12/24/17 07:53 Resp 20 12/24/17 07:53 BP 142/80 12/24/17 07:53 Pulse Ox 98 12/24/17 07:53 reviewed J.P. - Labs Labs: reviewed J.P. Assessment & Plan (1) Asthma exacerbation Status: Acute Priority: High (2) Cellulitis of right leg Status: Acute Priority: High - Assessment and Plan (Free Text) Plan: F/U L shoulder X-Ray, continue NC 2 L/M, Zosyn, Solu-Medrol, Duoneb and rest of Tx. PT & OT eval. - Date & Time Date: 12/24/17 Time: 10:30
[2017-12-25] MEDS: Albuterol-Ipratrop 3 mg / 0.5 (3 ml) UD INH SCH ×6 (04:11→23:08)
[2017-12-25] MEDS: MethylPREDNISolone 40 mg Vial IVP SCH ×3 (04:58→16:24)
[2017-12-25] MEDS: Piperacillin/Tazobact 3.375 GM in Sodium Chloride 0.9% 100 ML IVPB SCH ×4 (04:59→21:38)
[2017-12-25] MEDS: Lidocaine 5% Patch TD SCH ×2 (08:34→08:38)
[2017-12-25] MEDS: Pantoprazole 40 mg EC Tab PO SCH (08:34)
--- NOTE | 2017-12-25 13:46 | RAD ---
PROCEDURE: Radiographs of the Left Shoulder HISTORY: Chest pain, no antecedent history of trauma. COMPARISON: No prior. FINDINGS: BONES: Satisfactory position and appearance of orthopedic hardware proximal left humerus. No evidence of orthopedic hardware failure. JOINTS: Normal. Glenohumeral and acromioclavicular joints preserved. No osteoarthritis. SOFT TISSUES: Normal. OTHER FINDINGS: None. IMPRESSION: Satisfactory appearance of orthopedic hardware left humerus. Preserved glenohumeral relationship, no acute/significant findings identified.
[2017-12-25] MEDS: Promethazine/Cod 6.25mg-10mg/5ml Syr UD PO PRN (14:43)
--- NOTE | 2017-12-25 17:40 | CP.PCM.PN ---
Subjective - Date & Time of Evaluation Date of Evaluation: 12/25/17 Time of Evaluation: 09:15 - Subjective Subjective: F/U Asthma Exacerbation. dry cough, no SOB at rest on O2 NC, MARKHAM , Pain R shoulder Objective - Vital Signs/Intake and Output Vital Signs (last 24 hours): Temp Pulse Resp BP Pulse Ox 98.2 F 79 20 129/85 95 12/25/17 16:22 12/25/17 16:22 12/25/17 16:22 12/25/17 16:22 12/25/17 16:22 - Medications Medications: Current Medications Albuterol/Ipratropium (Duoneb 3 Mg/0.5 Mg (3 Ml) Ud) 3 ml INH RQ6 PRN PRN Reason: Shortness of Breath Last Admin: 12/24/17 14:08 Dose: 3 ml Albuterol/Ipratropium (Duoneb 3 Mg/0.5 Mg (3 Ml) Ud) 3 ml INH RQ4 AALIYAH Last Admin: 12/25/17 15:22 Dose: 3 ml Piperacillin Sod/Tazobactam (Sod 3.375 gm/ Sodium Chloride) 100 mls @ 100 mls/ hr IVPB Q6 AALIYAH Last Admin: 12/25/17 16:22 Dose: 100 mls/hr Lidocaine (Lidoderm) 1 ea TD DAILY AALIYAH Last Admin: 12/25/17 08:38 Dose: 1 ea Lidocaine (Lidoderm) 1 ea TD DAILY AALIYAH Last Admin: 12/25/17 08:34 Dose: 1 ea Lorazepam (Ativan) 1 mg PO HS AALIYAH Last Admin: 12/24/17 21:17 Dose: 1 mg Methylprednisolone (Solu-Medrol) 30 mg IVP Q8 AALIYAH Last Admin: 12/25/17 16:24 Dose: 30 mg Pantoprazole Sodium (Protonix Ec Tab) 40 mg PO DAILY AALIYAH Last Admin: 12/25/17 08:34 Dose: 40 mg Promethazine HCl/Codeine (Phenergan/Codeine Oral Syrup) 5 ml PO Q4 PRN PRN Reason: Cough Last Admin: 12/25/17 14:43 Dose: 5 ml - Constitutional Appears: No Acute Distress - Head Exam Head Exam: NORMAL INSPECTION - Eye Exam Eye Exam: PERRL - ENT Exam ENT Exam: Normal Exam - Neck Exam Neck Exam: Normal Inspection - Respiratory Exam Respiratory Exam: Decreased Breath Sounds, Rhonchi (few at bases) - Cardiovascular Exam Cardiovascular Exam: REGULAR RHYTHM - GI/Abdominal Exam GI & Abdominal Exam: Soft, Normal Bowel Sounds - Extremities Exam Additional comments: R leg edema, minimal erythema, minimal calf tenderness - Back Exam Back Exam: NORMAL INSPECTION - Neurological Exam Neurological Exam: Alert, CN II-XII Intact, Oriented x3. absent: Motor Sensory Deficit - Psychiatric Exam Psychiatric exam: Anxious - Skin Skin Exam: Warm Assessment and Plan (1) Asthma exacerbation Status: Acute (2) Cellulitis of right leg Status: Acute - Assessment and Plan (Free Text) Plan: DuoNeb, Zosyn, Prometh with Codeine,taper SoluMedrol, MARKHAM ,ambulating with a cane with PT
[2017-12-26] MEDS: MethylPREDNISolone 40 mg Vial IVP SCH ×3 (00:35→16:39)
[2017-12-26] MEDS: Promethazine/Cod 6.25mg-10mg/5ml Syr UD PO PRN ×2 (00:37→22:59)
[2017-12-26] MEDS: Piperacillin/Tazobact 3.375 GM in Sodium Chloride 0.9% 100 ML IVPB SCH ×4 (03:41→21:30)
[2017-12-26] MEDS: Albuterol-Ipratrop 3 mg / 0.5 (3 ml) UD INH SCH ×6 (04:28→23:07)
[2017-12-26] MEDS: Pantoprazole 40 mg EC Tab PO SCH (08:15)
[2017-12-26] MEDS: Lidocaine 5% Patch TD SCH ×2 (08:16)
--- NOTE | 2017-12-26 15:18 | CP.PCM.PN ---
Subjective - Date & Time of Evaluation Date of Evaluation: 12/26/17 Time of Evaluation: 14:10 - Subjective Subjective: F/U Asthma Exacerbation. No , SOB at rest,MARKHAM, dry cough intermittent , unsteady gait , pain R L knee , pain L shoulder Objective - Vital Signs/Intake and Output Vital Signs (last 24 hours): Temp Pulse Resp BP Pulse Ox 98.1 F 74 20 141/69 95 12/26/17 08:46 12/26/17 08:46 12/26/17 08:46 12/26/17 08:46 12/26/17 08:46 - Medications Medications: Current Medications Albuterol/Ipratropium (Duoneb 3 Mg/0.5 Mg (3 Ml) Ud) 3 ml INH RQ6 PRN PRN Reason: Shortness of Breath Last Admin: 12/24/17 14:08 Dose: 3 ml Albuterol/Ipratropium (Duoneb 3 Mg/0.5 Mg (3 Ml) Ud) 3 ml INH RQ4 AALIYAH Last Admin: 12/26/17 15:16 Dose: 3 ml Piperacillin Sod/Tazobactam (Sod 3.375 gm/ Sodium Chloride) 100 mls @ 100 mls/ hr IVPB Q6 AALIYAH Last Admin: 12/26/17 09:03 Dose: 100 mls/hr Lidocaine (Lidoderm) 1 ea TD DAILY AALIYAH Last Admin: 12/26/17 08:16 Dose: 1 ea Lidocaine (Lidoderm) 1 ea TD DAILY AALIYAH Last Admin: 12/26/17 08:16 Dose: 1 ea Lorazepam (Ativan) 1 mg PO HS AALIYAH Last Admin: 12/25/17 21:38 Dose: 1 mg Methylprednisolone (Solu-Medrol) 30 mg IVP Q8 AALIYAH Last Admin: 12/26/17 08:15 Dose: 30 mg Pantoprazole Sodium (Protonix Ec Tab) 40 mg PO DAILY AALIYAH Last Admin: 12/26/17 08:15 Dose: 40 mg Promethazine HCl/Codeine (Phenergan/Codeine Oral Syrup) 5 ml PO Q4 PRN PRN Reason: Cough Last Admin: 12/26/17 00:37 Dose: 5 ml - Constitutional Appears: No Acute Distress - Head Exam Head Exam: NORMAL INSPECTION - Eye Exam Eye Exam: PERRL - ENT Exam ENT Exam: Normal Exam - Neck Exam Neck Exam: Normal Inspection - Respiratory Exam Respiratory Exam: Decreased Breath Sounds, Rhonchi (few at bases) - Cardiovascular Exam Cardiovascular Exam: REGULAR RHYTHM - GI/Abdominal Exam GI & Abdominal Exam: Soft, Normal Bowel Sounds - Extremities Exam Additional comments: R leg edema, minimal erythema, minimal calf tenderness, R L knee tenderness, L shoulder tenderness - Back Exam Back Exam: NORMAL INSPECTION - Neurological Exam Neurological Exam: Alert, CN II-XII Intact, Oriented x3. absent: Motor Sensory Deficit - Psychiatric Exam Psychiatric exam: Anxious - Skin Skin Exam: Warm Assessment and Plan (1) Asthma exacerbation Status: Acute (2) Cellulitis of right leg Status: Acute (3) OA (osteoarthritis) Status: Acute - Assessment and Plan (Free Text) Plan: X Ray L shoulder Orthopedic hardware, no acute findings, continue DuoNeb , Prometh with Codeine , Zosyn ,Solu Medrol , Pt and rest of treatment
[2017-12-27] MEDS: MethylPREDNISolone 40 mg Vial IVP SCH ×3 (00:37→21:09)
[2017-12-27] MEDS: Piperacillin/Tazobact 3.375 GM in Sodium Chloride 0.9% 100 ML IVPB SCH ×4 (04:08→22:07)
[2017-12-27] MEDS: Promethazine/Cod 6.25mg-10mg/5ml Syr UD PO PRN ×2 (05:07→23:03)
[2017-12-27] MEDS: Albuterol-Ipratrop 3 mg / 0.5 (3 ml) UD INH SCH ×5 (05:35→23:39)
[2017-12-27] MEDS: Lidocaine 5% Patch TD SCH ×2 (08:06→08:07)
[2017-12-27] MEDS: Pantoprazole 40 mg EC Tab PO SCH (08:06)
--- NOTE | 2017-12-27 14:38 | CP.PCM.PN ---
Subjective - Date & Time of Evaluation Date of Evaluation: 12/27/17 Time of Evaluation: 13:50 - Subjective Subjective: F/U Asthma Exacerbation. no SOB at rest, MARKHAM, dry cough , pain R L knee , L shoulder Objective - Vital Signs/Intake and Output Vital Signs (last 24 hours): Temp Pulse Resp BP Pulse Ox 97.7 F 78 20 128/65 94 L 12/27/17 08:14 12/27/17 08:14 12/27/17 08:14 12/27/17 08:14 12/27/17 08:14 - Medications Medications: Current Medications Albuterol/Ipratropium (Duoneb 3 Mg/0.5 Mg (3 Ml) Ud) 3 ml INH RQ6 PRN PRN Reason: Shortness of Breath Last Admin: 12/24/17 14:08 Dose: 3 ml Albuterol/Ipratropium (Duoneb 3 Mg/0.5 Mg (3 Ml) Ud) 3 ml INH RQ8 AALIYAH Piperacillin Sod/Tazobactam (Sod 3.375 gm/ Sodium Chloride) 100 mls @ 100 mls/ hr IVPB Q6 AALIYAH Last Admin: 12/27/17 09:12 Dose: 100 mls/hr Lidocaine (Lidoderm) 1 ea TD DAILY AALIYAH Last Admin: 12/27/17 08:06 Dose: 1 ea Lidocaine (Lidoderm) 1 ea TD DAILY AALIYAH Last Admin: 12/27/17 08:07 Dose: 1 ea Lorazepam (Ativan) 1 mg PO HS AALIYAH Last Admin: 12/26/17 21:29 Dose: 1 mg Methylprednisolone (Solu-Medrol) 30 mg IVP Q12 [facility] Pantoprazole Sodium (Protonix Ec Tab) 40 mg PO DAILY AALIYAH Last Admin: 12/27/17 08:06 Dose: 40 mg Promethazine HCl/Codeine (Phenergan/Codeine Oral Syrup) 5 ml PO Q4 PRN PRN Reason: Cough Last Admin: 12/27/17 05:07 Dose: 5 ml Fluticasone/Salmeterol (Advair Diskus 500/50) 1 puff IH Q12 [facility] - Constitutional Appears: No Acute Distress - Head Exam Head Exam: NORMAL INSPECTION - Eye Exam Eye Exam: PERRL - ENT Exam ENT Exam: Normal Exam - Neck Exam Neck Exam: Normal Inspection - Respiratory Exam Respiratory Exam: Decreased Breath Sounds (at bases) - Cardiovascular Exam Cardiovascular Exam: REGULAR RHYTHM - GI/Abdominal Exam GI & Abdominal Exam: Soft, Normal Bowel Sounds - Extremities Exam Additional comments: R leg trace edema, tenderness L shoulder, R L knee - Back Exam Back Exam: NORMAL INSPECTION - Neurological Exam Neurological Exam: Alert, Awake, Oriented x3. absent: Motor Sensory Deficit - Psychiatric Exam Psychiatric exam: Anxious - Skin Skin Exam: Warm Assessment and Plan (1) Asthma exacerbation Status: Acute (2) Cellulitis of right leg Status: Acute - Assessment and Plan (Free Text) Plan: DuoNeb, Prometh with Codeine , taper Solu Medrol , Zosyn , add Advair,
[2017-12-27] MEDS: Fluticasone-Salmeterol 500-50mcg Diskus IH SCH (21:05)
[2017-12-28] MEDS: Piperacillin/Tazobact 3.375 GM in Sodium Chloride 0.9% 100 ML IVPB SCH ×4 (04:14→21:28)
[2017-12-28] MEDS: Albuterol-Ipratrop 3 mg / 0.5 (3 ml) UD INH SCH ×3 (07:32→23:40)
[2017-12-28] MEDS: Fluticasone-Salmeterol 500-50mcg Diskus IH SCH ×2 (09:49→21:24)
[2017-12-28] MEDS: MethylPREDNISolone 40 mg Vial IVP SCH ×2 (09:49→17:14)
[2017-12-28] MEDS: Lidocaine 5% Patch TD SCH ×2 (09:50→09:51)
[2017-12-28] MEDS: Pantoprazole 40 mg EC Tab PO SCH (09:53)
--- NOTE | 2017-12-28 14:58 | CP.PCM.PN ---
Subjective - Date & Time of Evaluation Date of Evaluation: 12/28/17 - Subjective Subjective: F/U Asthma Exacerbation. no SOB at rest, MARKHAM, cough dry , at times productive, Pain R L knee,L shoulder Objective - Vital Signs/Intake and Output Vital Signs (last 24 hours): Temp Pulse Resp BP Pulse Ox 97.7 F 72 20 139/80 94 L 12/28/17 08:13 12/28/17 08:13 12/28/17 08:13 12/28/17 08:13 12/28/17 08:13 - Medications Medications: Current Medications Albuterol/Ipratropium (Duoneb 3 Mg/0.5 Mg (3 Ml) Ud) 3 ml INH RQ6 PRN PRN Reason: Shortness of Breath Last Admin: 12/24/17 14:08 Dose: 3 ml Albuterol/Ipratropium (Duoneb 3 Mg/0.5 Mg (3 Ml) Ud) 3 ml INH RQ8 AALIYAH Last Admin: 12/28/17 07:32 Dose: 3 ml Piperacillin Sod/Tazobactam (Sod 3.375 gm/ Sodium Chloride) 100 mls @ 100 mls/ hr IVPB Q6 AALIYAH Last Admin: 12/28/17 09:49 Dose: 100 mls/hr Lidocaine (Lidoderm) 1 ea TD DAILY AALIYAH Last Admin: 12/28/17 09:50 Dose: 1 ea Lidocaine (Lidoderm) 1 ea TD DAILY AALIYAH Last Admin: 12/28/17 09:51 Dose: 1 ea Lorazepam (Ativan) 1 mg PO HS AALIYAH Last Admin: 12/27/17 22:06 Dose: 1 mg Methylprednisolone (Solu-Medrol) 30 mg IVP Q12 AALIYAH Last Admin: 12/28/17 09:49 Dose: 30 mg Pantoprazole Sodium (Protonix Ec Tab) 40 mg PO DAILY AALIYAH Last Admin: 12/28/17 09:53 Dose: 40 mg Promethazine HCl/Codeine (Phenergan/Codeine Oral Syrup) 5 ml PO Q4 PRN PRN Reason: Cough Last Admin: 12/27/17 23:03 Dose: 5 ml Fluticasone/Salmeterol (Advair Diskus 500/50) 1 puff IH Q12 AALIYAH Last Admin: 12/28/17 09:49 Dose: 1 puff - Constitutional Appears: No Acute Distress - Head Exam Head Exam: NORMAL INSPECTION - Eye Exam Eye Exam: PERRL - ENT Exam ENT Exam: Normal Exam - Neck Exam Neck Exam: Normal Inspection - Respiratory Exam Respiratory Exam: Decreased Breath Sounds (at bases), Wheezes - Cardiovascular Exam Cardiovascular Exam: REGULAR RHYTHM - GI/Abdominal Exam GI & Abdominal Exam: Soft, Normal Bowel Sounds - Extremities Exam Extremities Exam: Tenderness (L shoulder, R-L knee) Additional comments: R leg trace edema, no erythema. - Back Exam Back Exam: NORMAL INSPECTION - Neurological Exam Neurological Exam: Alert, Oriented x3. absent: Motor Sensory Deficit - Psychiatric Exam Psychiatric exam: Anxious - Skin Skin Exam: Warm Assessment and Plan (1) Asthma exacerbation Status: Acute (2) Cellulitis of right leg Status: Acute - Assessment and Plan (Free Text) Plan: increase bronchospasm today, unsteady gait due o pain R L knee , L shoulde, She walks with cane , Cellulitis R leg resolved , contnue DuoNeb, Mucinex, Prometh with Codeine, Zosyn, Increase SoluMedro 30mg q 8hs, add Advair
[2017-12-28] MEDS: Promethazine/Cod 6.25mg-10mg/5ml Syr UD PO PRN ×2 (15:48→21:27)
[2017-12-28 16:34] LABS: ABG ALLEN TEST YES; ARTERIAL BLOOD GAS HCO3 31.3 mmol/L (21-28); ARTERIAL BLOOD GAS HEMOGLOBIN 17.4 g/dL (11.7-17.4); ARTERIAL BLOOD GAS O2 CAPACITY 23.5 mL/dL (16-24); ARTERIAL BLOOD GAS O2 SAT 97.8 % (95-98); ARTERIAL BLOOD GAS PCO2 51 mm/Hg (35-45); ARTERIAL BLOOD GAS PH 7.44 (7.35-7.45); ARTERIAL BLOOD GAS PO2 80 mm/Hg (80-100); ARTERIAL BLOOD GAS TCO2 36.2 mmol/L (22-28)
[2017-12-28 16:41] VITALS: TEMP 98.2
[2017-12-28 21:09] VITALS: O2SAT 96
[2017-12-29] MEDS: MethylPREDNISolone 40 mg Vial IVP SCH ×2 (00:18→08:30)
[2017-12-29] MEDS: Piperacillin/Tazobact 3.375 GM in Sodium Chloride 0.9% 100 ML IVPB SCH (04:40)
[2017-12-29] MEDS: Promethazine/Cod 6.25mg-10mg/5ml Syr UD PO PRN (04:46)
[2017-12-29 06:38] LABS: HEMOGLOBIN 15.7 g/dL (12.0-16.0); MEAN CELL VOLUME 96.6 fl (81.0-99.0); MEAN CORPUSCULAR HEMOGLOBIN 31.9 pg (27.0-31.0); RBC 4.91 Mil/uL (3.80-5.20); RED CELL DISTRIBUTION WIDTH 13.8 % (11.5-14.5); WHITE BLOOD COUNT 10.4 K/uL (4.8-10.8)
[2017-12-29] MEDS: Albuterol-Ipratrop 3 mg / 0.5 (3 ml) UD INH SCH ×2 (07:01→15:40)
[2017-12-29 07:03] LABS: ALB/GLOB RATIO 1.1 (1.0-2.1); ALBUMIN 3.2 g/dL (3.5-5.0); ALT/SGPT 135 U/L (9-52); AST/SGOT 59 U/L (14-36); BLOOD UREA NITROGEN 20 mg/dl (7-17); CALCIUM 9.2 mg/dL (8.4-10.2); GFR AFRICAN-AMERICAN > 60; GFR NON-AFRICAN AMERICAN > 60
[2017-12-29 08:20] VITALS: BP 139/74; PULSE 75
[2017-12-29] MEDS: Lidocaine 5% Patch TD SCH (08:31)
[2017-12-29] MEDS: Pantoprazole 40 mg EC Tab PO SCH (08:33)
[2017-12-29] MEDS: Fluticasone-Salmeterol 500-50mcg Diskus IH SCH (08:33)
[2017-12-29] MEDS ORDERED: Lidocaine 5% Patch TD SCH ×2 (09:00)
--- NOTE | 2017-12-29 12:36 | CP.PCM.PN ---
Objective - Vital Signs/Intake and Output Vital Signs (last 24 hours): Temp Pulse Resp BP Pulse Ox 98.2 F 75 20 139/74 96 12/29/17 08:19 12/29/17 08:19 12/29/17 08:19 12/29/17 08:19 12/29/17 08:19 - Medications Medications: Current Medications Albuterol/Ipratropium (Duoneb 3 Mg/0.5 Mg (3 Ml) Ud) 3 ml INH RQ6 PRN PRN Reason: Shortness of Breath Last Admin: 12/24/17 14:08 Dose: 3 ml Albuterol/Ipratropium (Duoneb 3 Mg/0.5 Mg (3 Ml) Ud) 3 ml INH RQ8 AALIYAH Last Admin: 12/29/17 07:01 Dose: 3 ml Lidocaine (Lidoderm) 1 ea TD DAILY AALIYAH Last Admin: 12/29/17 08:31 Dose: 1 ea Lidocaine (Lidoderm) 1 ea TD DAILY AALIYAH Last Admin: 12/29/17 08:32 Dose: 1 ea Lorazepam (Ativan) 1 mg PO HS AALIYAH Last Admin: 12/28/17 21:24 Dose: 1 mg Methylprednisolone (Solu-Medrol) 30 mg IVP Q8 AALIYAH Last Admin: 12/29/17 08:30 Dose: 30 mg Pantoprazole Sodium (Protonix Ec Tab) 40 mg PO DAILY AALIYAH Last Admin: 12/29/17 08:33 Dose: 40 mg Promethazine HCl/Codeine (Phenergan/Codeine Oral Syrup) 5 ml PO Q4 PRN PRN Reason: Cough Last Admin: 12/29/17 04:46 Dose: 5 ml Fluticasone/Salmeterol (Advair Diskus 500/50) 1 puff IH Q12 AALIYAH Last Admin: 12/29/17 08:33 Dose: 1 puff - Labs Labs: 12/29/17 05:20 12/29/17 05:20 Assessment and Plan (1) Asthma exacerbation Status: Acute (2) Cellulitis of right leg Status: Acute
--- NOTE | 2017-12-29 13:00 | CP.PCM.DIS ---
Provider - Provider Date of Admission: 12/23/17 22:27 Attending physician: Fran Son MD Diagnosis - Discharge Diagnosis (1) Asthma exacerbation Status: Acute Priority: High (2) Cellulitis of right leg Status: Acute Priority: High Hospital Course - Lab Results Lab Results: Most Recent Lab Values WBC 10.4 K/uL (4.8-10.8) D 12/29/17 05:20 RBC 4.91 Mil/uL (3.80-5.20) 12/29/17 05:20 Hgb 15.7 g/dL (12.0-16.0) 12/29/17 05:20 Hct 47.5 % (34.0-47.0) H 12/29/17 05:20 MCV 96.6 fl (81.0-99.0) 12/29/17 05:20 MCH 31.9 pg (27.0-31.0) H 12/29/17 05:20 MCHC 33.0 g/dL (33.0-37.0) 12/29/17 05:20 RDW 13.8 % (11.5-14.5) 12/29/17 05:20 Plt Count 120 K/uL (130-400) L D 12/29/17 05:20 pCO2 51 mm/Hg (35-45) H 12/28/17 16:27 pO2 80 mm/Hg (80-100) 12/28/17 16:27 HCO3 31.3 mmol/L (21-28) H 12/28/17 16:27 ABG pH 7.44 (7.35-7.45) 12/28/17 16:27 ABG Total CO2 36.2 mmol/L (22-28) H 12/28/17 16:27 ABG O2 Saturation 97.8 % (95-98) 12/28/17 16:27 ABG O2 Content 23.0 ML/dL (15-23) 12/28/17 16:27 ABG Base Excess 8.4 mmol/L (-2.0-3.0) H 12/28/17 16:27 ABG Hemoglobin 17.4 g/dL (11.7-17.4) 12/28/17 16:27 ABG Carboxyhemoglobin 2.2 % (0.5-1.5) H 12/28/17 16:27 POC ABG HHb (Measured) 2.1 % (0.0-5.0) 12/28/17 16:27 ABG Methemoglobin 1.6 % (0.0-3.0) 12/28/17 16:27 ABG O2 Capacity 23.5 mL/dL (16-24) 12/28/17 16:27 Willie Test Yes 12/28/17 16:27 A-a O2 Difference 6.0 mm/Hg 12/28/17 16:27 Hgb O2 Saturation 94.1 % (95.0-98.0) L 12/28/17 16:27 Vent Mode Room air 12/28/17 16:27 FiO2 21.0 % 12/28/17 16:27 Sodium 135 mmol/l (132-148) 12/29/17 05:20 Potassium 5.1 MMOL/L (3.6-5.0) H 12/29/17 05:20 Chloride 95 mmol/L (98-107) L 12/29/17 05:20 Carbon Dioxide 33 mmol/L (22-30) H 12/29/17 05:20 Anion Gap 12 (10-20) 12/29/17 05:20 BUN 20 mg/dl (7-17) H 12/29/17 05:20 Creatinine 0.7 mg/dl (0.7-1.2) 12/29/17 05:20 Est GFR ( Amer) > 60 12/29/17 05:20 Est GFR (Non-Af Amer) > 60 12/29/17 05:20 Random Glucose 270 mg/dL (65-105) H 12/29/17 05:20 Calcium 9.2 mg/dL (8.4-10.2) 12/29/17 05:20 Total Bilirubin 0.7 mg/dl (0.2-1.3) 12/29/17 05:20 AST 59 U/L (14-36) H 12/29/17 05:20 ALT 135 U/L (9-52) H D 12/29/17 05:20 Alkaline Phosphatase 102 U/L (38-126) 12/29/17 05:20 Total Protein 6.3 G/DL (6.3-8.2) 12/29/17 05:20 Albumin 3.2 g/dL (3.5-5.0) L D 12/29/17 05:20 Globulin 3.0 gm/dL (2.2-3.9) 12/29/17 05:20 Albumin/Globulin Ratio 1.1 (1.0-2.1) 12/29/17 05:20 Discharge Exam - Head Exam Head Exam: NORMAL INSPECTION Discharge Plan - Follow Up Plan Condition: GOOD Disposition: HOME/ ROUTINE Instructions: Asthma, Adult (DC), Shortness of Breath (Dyspnea) (DC), Cellulitis (Skin Infection), Adult (DC) Referrals: Ezequiel Lizama MD [Resident] -
== END 2017-12-29 15:00 | disposition home or self-care (01) | DRG 96 ==
LOC: H.TCU 22:27
PROVIDERS: ADMIT Internal Medicine Pulmonary Disease; ATTEND Internal Medicine Pulmonary Disease
DX: J45.901 Unspecified asthma with (acute) exacerbation (principal); L03.115 Cellulitis of right lower limb; I10 Essential (primary) hypertension; M19.90 Unspecified osteoarthritis, unspecified site; F17.210 Nicotine dependence, cigarettes, uncomplicated; Z98.51 Tubal ligation status

== ENCOUNTER 2018-01-03 12:24 | Emergency (ER) | payer MEDICAID ==
[2018-01-03 12:48] VITALS: BMI 35.0
[2018-01-03 14:14] LABS: BASO # 0.1 K/uL (0.0-0.2); BASO % 0.5 % (0.0-2.0); EOS # 0.1 K/uL (0.0-0.7); EOS % 0.7 % (0.0-4.0); HEMOGLOBIN 16.4 g/dL (12.0-16.0); LYMPH # 1.5 K/uL (1.0-4.3); LYMPH % 13.4 % (20.0-40.0); MEAN CELL VOLUME 94.9 fl (81.0-99.0); MEAN CORPUSCULAR HEMOGLOBIN 31.6 pg (27.0-31.0); MEAN CORPUSCULAR HGB CONC 33.3 g/dL (33.0-37.0); MEAN PLATELET VOLUME 9.8 fl (7.2-11.7); MONO # 0.8 K/uL (0.0-0.8); MONO % 6.7 % (0.0-10.0); NEUT % 78.7 % (50.0-75.0); RBC 5.19 Mil/uL (3.80-5.20); RED CELL DISTRIBUTION WIDTH 13.1 % (11.5-14.5); WHITE BLOOD COUNT 11.4 K/uL (4.8-10.8)
[2018-01-03 14:51] LABS: ALBUMIN 3.5 g/dL (3.5-5.0); ALT/SGPT 153 U/L (9-52); AST/SGOT 103 U/L (14-36); BLOOD UREA NITROGEN 14 mg/dl (7-17); CALCIUM 10.2 mg/dL (8.4-10.2); GFR AFRICAN-AMERICAN > 60; GFR NON-AFRICAN AMERICAN > 60
[2018-01-03 14:52] LABS: B-TYPE NATRIURETIC PEPTIDE 64.3 pg/ml (0-900)
--- NOTE | 2018-01-03 16:51 | US ---
Date of service: 01/03/2018 PROCEDURE: Bilateral lower extremity venous duplex Doppler. HISTORY: leg edema COMPARISON: Comparison made with prior right lower extremity venous Doppler 12/17/2017. The the the TECHNIQUE: Bilateral common femoral, superficial femoral, popliteal and posterior tibial veins were evaluated. Flow was assessed with color Doppler, compressibility, assessment of phasic flow and augmentation response. FINDINGS: COMMON FEMORAL VEIN: Right CFV: Unremarkable. Left CFV: Unremarkable. SUPERFICIAL FEMORAL VEIN: Right SFV: Unremarkable. Left SFV: Unremarkable. POPLITEAL VEIN: Right Popliteal: Unremarkable. Left Popliteal: Unremarkable. POSTERIOR TIBIAL VEIN: Right PTV: Unremarkable. Left PTV: Unremarkable. OTHER FINDINGS: Right-sided popliteal cyst measuring 4.9 x 1.8 x 2.5 cm. Small left-sided Weiss's cyst measuring 2.1 x 0.7 x 2.7 cm. IMPRESSION: No evidence of deep venous thrombosis. Small bilateral Weiss's cysts.
--- NOTE | 2018-01-03 17:16 | ED PDOC ---
Lower Extremity Pain/Injury Time Seen by Provider: 01/03/18 15:39 Chief Complaint (Nursing): Shortness Of Breath Chief Complaint (Provider): Bilateral knee pain Additional Complaint(s): Daughter in-law states patient was SOB when she arrived at her home. Pt states after she used the inhaler she felt better. Pt with history of asthma and was recently discharged after admission for SOB. Past Medical History Vital Signs: Last Vital Signs Temp 99.4 F 01/03/18 12:50 Pulse 95 H 01/03/18 12:45 Resp BP 127/81 01/03/18 12:45 Pulse Ox 93 L 01/03/18 12:45 - Medical History PMH: Anxiety, Asthma, Depression, HTN Denies: Chronic Kidney Disease - Home Medications Home Medications: Ambulatory Orders Medication Instructions Recorded Albuterol/Ipratropium [Duoneb 3 3 ml INH RQ6 neb 12/23/17 mg/0.5 mg (3 ml) UD] Albuterol/Ipratropium [Duoneb 3 3 ml INH RQ6 PRN neb 12/23/17 mg/0.5 mg (3 ml) UD] LORazepam [Ativan] 1 tab PO HS 12/23/17 Lidocaine 5% [Lidoderm] 1 ea TD DAILY patch 12/23/17 Pantoprazole [Protonix EC Tab] 40 mg PO DAILY ect 12/23/17 Sodium Chloride for Inhalation 4 ml IH ONCE PRN vial.neb 12/23/17 [Sodium Chloride 3% for Inhalation] Fluticasone/Salmeterol 500/50 1 puff INH Q12 12/29/17 [Advair Diskus 500/50] Prednisolone [Millipred Dp] 5 mg PO DAILY 12/29/17 traMADol [Ultram] 50 mg PO Q6H PRN #15 tab 01/03/18 - Allergies Allergies/Adverse Reactions: Allergies Allergy/AdvReac Type Severity Reaction Status Date / Time No Known Allergies Allergy Verified 12/17/17 20:33 - Laboratory Results Result Diagrams: 01/03/18 14:09 01/03/18 14:09 - ECG O2 Sat by Pulse Oximetry: 93 Disposition - Clinical Impression Clinical Impression: Weiss cyst - Patient ED Disposition Is Patient to be Admitted: No Counseled Patient/Family Regarding: Diagnosis, Need For Followup, Rx Given - Disposition Disposition: Routine/Home Disposition Time: 17:13 Condition: GOOD Prescriptions: traMADol [Ultram] 50 mg PO Q6H PRN #15 tab PRN Reason: Pain Instructions: Weiss's Cyst Forms: [facility] (French) Print Language: YAKUT
[2018-01-03 17:25] VITALS: TEMP 98.7
[2018-01-03 17:55] VITALS: BP 130/80; PULSE 82; RESP 17
--- NOTE | 2018-01-03 17:59 | RAD ---
Date of service: 01/03/2018 HISTORY: SOB COMPARISON: Comparison chest 12/22/2017 TECHNIQUE: Chest PA and lateral FINDINGS: LUNGS: Minor bibasilar atelectasis left greater than right. Slight blunting both CP angles likely due questionably due to pleural thickening. There is tiny at calcified granuloma right lateral lung field unchanged PLEURA: No significant pleural effusion identified. No pneumothorax apparent. CARDIOVASCULAR: Normal. OSSEOUS STRUCTURES: No significant abnormalities. VISUALIZED UPPER ABDOMEN: Normal. OTHER FINDINGS: None. IMPRESSION: Minor bibasilar atelectasis left greater than right. Slight blunting both CP angles likely due questionably due to pleural thickening. There is tiny at calcified granuloma right lateral lung field unchanged
--- NOTE | 2018-01-03 18:03 | RAD ---
Date of service: 01/03/2018 PROCEDURE: Bilateral Knee Radiographs. HISTORY: bilateral knee pain COMPARISON: None. FINDINGS: BONES: Right Knee: Normal. No fracture. Left Knee: Normal. No fracture. JOINTS: Right Knee: Normal. No osteoarthritis. Left knee: Normal. No osteoarthritis. SOFT TISSUES: Right Knee: Normal. Left Knee: Normal. JOINT EFFUSION: Questionable trace joint effusions left slightly larger than right OTHER FINDINGS: None. IMPRESSION: No evidence of acute displaced fracture nor dislocation. No significant osteoarthritis.
[2018-01-03 19:22] VITALS: O2SAT 93
--- NOTE | 2018-01-05 10:23 | CARD ---
APPROVED REPORT Date of service: 01/03/2018 EKG Measurement Heart [id number] <Conclusion> Normal sinus rhythm Normal ECG
== END 2018-01-03 17:45 | disposition home or self-care (01) ==
LOC: H.ER 12:24
DX: M71.22 Synovial cyst of popliteal space [Baker], left knee (principal)